=== PATIENT | female | born 1955 | race Caucasian/White ===

== ENCOUNTER → 2018-03-29 08:37 | Outpatient (CLI) | payer BC, SELFPAY ==
--- NOTE | 2018-03-29 08:43 | MM_ITS ---
MM Dig screening mamm BI w/CAD CAD Screening COMPARISON: Digital mammograms with CAD 08/08/2014 and 10/25/2015 INDICATION: There is no personal or family history of breast cancer TECHNIQUE: Standard CC and MLO images were obtained. R2 CAD reviewed. FINDINGS: There is a markedly dense and heterogenic parenchymal pattern definitely lessening the sensitivity of mammography. There is no new or suspicious lesion in either breast and there are no suspicious microcalcifications. IMPRESSION: Stable dense and heterogenic parenchymal pattern with no suspicious lesion seen BI-RADS Category: 1 Negative RECOMMENDED FOLLOW-UP: 1YR - 1 YEAR FOLLOW-UP (A letter has been sent to the patient regarding results of the study.)
== END ==
PROVIDERS: PCP Family Medicine; Visit Provider Family Medicine
DX: Z12.31 Encounter for screening mammogram for malignant neoplasm of breast (principal)
CPT/HCPCS: 77067

== ENCOUNTER → 2019-07-21 07:33 | Outpatient (CLI) | payer BC, SELFPAY ==
--- NOTE | 2019-07-21 08:00 | MM_ITS ---
PROCEDURE: MM DIG SCREENING MAMM BI W/CAD CLINICAL INDICATION: SCREENING COMPARISON: [facility] DIG MAMM-SCREEN RUSS from 08/08/2014 [facility] DIG MAMM-SCREEN [facility] from 10/25/2015 [facility] MM Dig screening mamm BI w/CAD from 03/29/2018 TECHNIQUE: Standard CC and MLO images and 3D Tomosynthesis was obtained. R2 CAD reviewed. FINDINGS: The breasts are dense. Benign appearing calcifications are seen in both breasts. Benign appearing circumscribed nodule unchanged projects over the left pectoral muscle. There is no new mass suspicious clustered microcalcification or other interval change suspicious for malignancy. IMPRESSION: BI-RAD Category: 2 benign findings FOLLOW-UP: 1 year follow-up recommended (A letter has been sent to the patient regarding results of the study.) Dictated by: Jose Antonio Theodore 07/21/2019 12:33 Electronically signed by Jose Antonio Theodore in [place] 07/21/2019 12:33
== END ==
PROVIDERS: PCP Family Medicine; Visit Provider Family Medicine
DX: Z12.31 Encounter for screening mammogram for malignant neoplasm of breast (principal)
CPT/HCPCS: 77063; 77067

== ENCOUNTER → 2021-05-24 09:22 | Outpatient (CLI) | payer BC, SELFPAY ==
[2021-05-24 10:21] LABS: Adenovirus,PCR Not Detected (NotDetected); Bordetella Pertussis Not Detected (NotDetected); Chlamydophila Pneumoniae, PCR Not Detected (NotDetected); Coronavirus 19, PCR Not Detected (NotDetected); Coronavirus 229E Not Detected (NotDetected); Coronavirus NL63 Not Detected (NotDetected); Coronavirus OC43 Not Detected (NotDetected); Coronovirus HKU1,PCR Not Detected (NotDetected); Human Metapneumovirus Not Detected (NotDetected); Influenza A, PCR Not Detected (NotDetected); Influenza AH1, 2009 Not Detected (NotDetected); Influenza AH1, PCR Not Detected (NotDetected); Influenza AH3,PCR Not Detected (NotDetected); Influenza B, PCR Not Detected (NotDetected); Mycoplasma Pneumoniae, PCR Not Detected (NotDetected); Parainfluenza 1, PCR Not Detected (NotDetected); Parainfluenza 2, PCR Not Detected (NotDetected); Parainfluenza 3, PCR Not Detected (NotDetected); Parainfluenza 4, PCR Not Detected (NotDetected); Rhinovirus/Enterovirus Not Detected (NotDetected)
[2021-05-24 10:26] LABS: Basophils # 0.1 K/mm3 (0-0.2); Basophils % 1.6 % (0.1-2.0); Eosinophils # 0.1 K/mm3 (0.0-0.4); Eosinophils % 2.4 % (0.1-12.0); Hematocrit 41.7 % (37.0-47.0); Lymphocytes # 1.5 K/mm3 (0.7-4.5); Lymphocytes % 27.2 % (10-50); Mean Corpuscular HGB Conc 31.1 g/dL (31.8-35.4); Mean Corpuscular Hemoglobin 34.4 pg (27.0-31.2); Mean Corpuscular Volume 110.8 fl (81-99); Mean Platelet Volume 9.6 fl (7.4-10.4); Monocytes # 0.4 K/mm3 (0.1-1.0); Monocytes % 6.8 % (1.7-9.3); Neutrophils # 3.4 K/mm3 (1.8-7.8); Neutrophils % 61.9 % (37.0-80.0); Platelet Count 207 K/mm3 (142-424); Red Blood Count 3.77 M/mm3 (4.20-5.40); Red Cell Distribution Width 13.3 % (11.5-17.5); White Blood Count 5.5 K/mm3 (4.8-10.8)
[2021-05-24 12:03] LABS: Respiratory Syncytial Virus Detected (NotDetected)
== END ==
PROVIDERS: PCP Family Medicine; Visit Provider Family Medicine
DX: Z20.822 Contact with and (suspected) exposure to COVID-19 (principal); B97.4 Respiratory syncytial virus as the cause of diseases classified elsewhere
CPT/HCPCS: 85025; 87581; 87632; 87798; C9803; U0003; U0005

== ENCOUNTER → 2022-03-12 08:01 | Outpatient (CLI) | payer MEDICARE, OTHER, SELFPAY ==
--- NOTE | 2022-03-12 08:05 | MM_ITS ---
PROCEDURE INFORMATION: Exam: MG Bilateral Screening 3D Mammography Exam date and time: 03/12/2022 8:15 AM Age: 66 years old Clinical indication: Screening examination. No family history of breast cancer. TECHNIQUE: Imaging protocol: Bilateral Screening tomosynthesis and 2D mammography including computer-aided detection (CAD) when performed. COMPARISON: 1. MG MM DIG SCREENING MAMM BI W/CAD 07/21/2019 8:06 AM 2. MG [facility] MM Dig screening mamm BI w/CAD 03/29/2018 8:50 AM 3. MG [facility] DIG MAMM-SCREEN RUSS 10/25/2015 9:26 AM FINDINGS: MAMMOGRAPHY: Breast composition: The breasts are heterogeneously dense, which may obscure small masses. Mass: None. Architectural distortion: None. Calcifications: No suspicious calcifications. Asymmetric density: None. Skin thickening: None. Axillary adenopathy: None. IMPRESSION: No mammographic evidence of malignancy. Annual screening is recommended unless otherwise clinically indicated. ASSESSMENT: BI-RADS Category 1: Negative
== END ==
PROVIDERS: PCP Family Medicine; Visit Provider Family Medicine
DX: Z12.31 Encounter for screening mammogram for malignant neoplasm of breast (principal)
CPT/HCPCS: 77063; 77067

== ENCOUNTER → 2022-03-13 08:37 | Outpatient (CLI) | payer MEDICARE, OTHER, SELFPAY ==
--- NOTE | 2022-03-13 08:40 | XR_ITS ---
FINAL REPORT TECHNIQUE: Bone densitometry calculations of the lumbar spine and left hip were obtained. CLINICAL HISTORY: post menopausal FINDINGS: DEXA BONE DENSITY AXIAL SKELETON Using L1-4, the bone mineral density of the spine is 1.032 g/cm2, corresponding to T-score of -0.1. Using the left hip, the bone mineral density of the femoral neck is 0.665 g/cm2, corresponding to a T-score of -1.7. NOTE: T-score: Standard deviation compared with peak bone mass of young adult mean. *Following the recommendations of the International Society of Bone densitometry, classification of hip BMD is based on the lower of two T-scores; total hip or femoral neck. IMPRESSION: Diminished bone mineral density of the lumbar spine and left hip consistent with osteopenia. FRAX 10 year fracture risk is 1.1% for a hip fracture and 8.7% for a major osteoporotic fracture. Reviewed, Interpreted and Dictated by True Marie MD Transcribed by Bhumi Lee Authenticated and [facility]
== END ==
PROVIDERS: PCP Family Medicine; Visit Provider Family Medicine
DX: Z78.0 Asymptomatic menopausal state (principal)
CPT/HCPCS: 77080

== ENCOUNTER → 2022-04-01 12:42 | Outpatient (POV) | payer MEDICARE, OTHER, SELFPAY | PROVIDERS: Visit Provider Dermatology | DX: Z00.00 Encounter for general adult medical examination without abnormal findings (principal) ==

== ENCOUNTER → 2022-05-06 09:39 | Outpatient (POV) | payer MEDICARE, OTHER, SELFPAY | PROVIDERS: Visit Provider Dermatology | DX: Z00.00 Encounter for general adult medical examination without abnormal findings (principal) ==

== ENCOUNTER 2022-07-05 15:25 | Emergency (ER) | payer MEDICARE, OTHER, SELFPAY ==
[2022-07-05 15:45] VITALS: BP 135/90; PULSE 89; RESP 18; TEMP 37.3; O2SAT 96; BMI 22.4
[2022-07-05 15:58] VITALS: BP 135/90; PULSE 89; RESP 18; TEMP 37.3; O2SAT 96
[2022-07-05 16:06] LABS: UTC Influenza A Antigen Negative (Negative); UTC Influenza B Antigen Negative (Negative)
--- NOTE | 2022-07-05 16:10 | EXP.UTC ---
Discharge Plan Disposition Patient Disposition: Home, Self-Care Condition: Good Prescriptions Prescriptions: New ondansetron 4 mg tablet,disintegrating 4 mg PO Q8H PRN (Reason: nausea and vomiting) Qty: 7 0RF Referrals Follow up/Referrals: Arpan Zhang MD [Primary Care Provider] - See instructions Activity Restrictions/Add. Instructions Additional Instructions/Restrictions: Monitor temperature. Seek treatment if fever develops. Follow-up immediately if new or worse symptoms worsen or no noticeable improvement over 48 hours. Increase fluids such as water, Gatorade, Powerade, juice or Pedialyte with limited formula/dietary in children No food is okay as long as you are drinking. Once ready to eat start bland such as bananas, rice, applesauce, toast. Contagious until no diarrhea, vomiting, fever times 48 hours without medication Avoid antidiarrheals unless told otherwise. Best to let the virus run its course. Follow-up immediately for new or worsening symptoms or no noticeable improvement over the next 48 hours. Clinical Impressions Clinical Impression: Nausea & vomiting Instructions Patient Instructions: Nausea and Vomiting-Adult Discharge ED Provider: Fritz ([facility])Latoya [facility] [place] HPI General Stated complaint: fever,vomiting Mode of Arrival: Ambulatory Source of Information: Patient Limitations: No Limitations Time Seen by Provider: 07/05/22 16:10 Description of Symptoms (Recalled from Triage Doc. by RN): PATIENT C/O FEVER AND VOMITING SINCE THIS MORNING HEENT Symptoms (Recalled from RN notes): No Resp Symptoms (Recalled from RN notes): No Skin Symptoms (Recalled from RN notes): No MS Symptoms (Recalled from RN notes): No Functional Status (Recalled from RN notes): WNL History of Present Illness Provider Complaint: 66 yr old female presents for fever and vomiting x1 this am Related Data Previous Rx's Medication Instructions Recorded ondansetron 4 mg disintegrating 4 mg PO Q8H PRN nausea and 07/05/22 tablet vomiting #7 tabs Allergies Allergy/AdvReac Type Severity Reaction Status Date / Time Penicillins [PENICILLINS] Allergy Unknown Verified 07/05/22 15:54 Worker's Comp Is this a Worker's Comp case?: No [facility] Disclaimer: The information contained in this section may have been updated after the patient was seen, as this information can be updated by other users. 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) History of appendectomy Social History , RN ONCOLOGY CLINICAL) Smoking Status: Unknown if ever smoked alcohol intake: never current occupational status: other Travel in the last 8 weeks: None ROS Obtained: Yes All systems reviewed & no additional complaints except as documented Constitutional Constitutional: Reports system reviewed and no additional complaints, except as documented, Reports as per HPI and Reports fever(s) Eyes Eyes: Reports system reviewed and no additional complaints, except as documented ENT Ears, Nose, Mouth, and Throat: Reports system reviewed and no additional complaints, except as documented Cardiovascular Cardiovascular: Reports system reviewed and no additional complaints, except as documented Respiratory Respiratory: Reports system reviewed and no additional complaints, except as documented Gastrointestinal Gastrointestingal: Reports system reviewed and no additional complaints, except as documented, as per HPI, nausea and vomiting Genitourinary Female Genitourinary: Reports system reviewed and no additional complaints, except as documented and Reports as per HPI (refuses any testing) Musculoskeletal Musculoskeletal: Reports system reviewed and no additional complaints, except as documented and Reports as per HPI Integumentary/Breasts Skin/Breast: Reports system reviewed and no additional complaints, except as documented and Reports as per HPI Neurologic Neurologic: Re
== END 2022-07-05 16:29 | disposition home or self-care (01) ==
PROVIDERS: Emergency Provider Nurse Practitioner Family; PCP Family Medicine
DX: R11.2 Nausea with vomiting, unspecified (principal); R50.9 Fever, unspecified
CPT/HCPCS: 87804; 99212; 99213; C9803; G0463; U0003; U0005

== ENCOUNTER 2022-09-01 13:44 | Emergency (ER) | payer MEDICARE, OTHER, SELFPAY ==
[2022-09-01 14:00] VITALS: BP 132/83; PULSE 106; RESP 20; TEMP 36.6; O2SAT 97; BMI 21.9
--- NOTE | 2022-09-01 14:01 | EXP.UTC ---
Discharge Plan Disposition Patient Disposition: Home, Self-Care Condition: Good Prescriptions Prescriptions: No Action meloxicam 15 mg tablet 15 mg PO DAILY allopurinol 100 mg tablet 100 mg PO DAILY omeprazole 40 mg capsule,delayed release(DR/EC) 40 mg PO DAILY Referrals Follow up/Referrals: Arpan Zhang MD [Primary Care Provider] - See instructions Activity Restrictions/Add. Instructions Additional Instructions/Restrictions: Follow-up with primary care doctor and return to the emergency department as needed. Take Tylenol or ibuprofen as needed for your pain. Your CT scan of your head was unremarkable. Clinical Impressions Clinical Impression: Minor head injury Discharge ED Provider: Clyde Arce [facility] [place] HPI General Chief complaint: Fall Stated complaint: HIT HER HEAD ON CONCRETEHAS KNOT Time Seen by Provider: 09/01/22 14:01 History of Present Illness Provider Complaint: She states that she fell and hit the back of her head on concrete. She denies loc,but she has had dizziness and nausea since this happened yesterday. She has vomited x1. Related Data Home Medications Medication Instructions Recorded Confirmed allopurinol 100 mg tablet 100 mg PO DAILY gout 09/01/22 09/01/22 meloxicam 15 mg tablet 15 mg PO DAILY Pain 09/01/22 09/01/22 omeprazole 40 mg capsule,delayed 40 mg PO DAILY , 09/01/22 09/01/22 release Allergies Allergy/AdvReac Type Severity Reaction Status Date / Time Penicillins [PENICILLINS] Allergy Unknown Verified 09/01/22 14:01 [facility] Disclaimer: The information contained in this section may have been updated after the patient was seen, as this information can be updated by other users. 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 History of appendectomy Social History Smoking Status: Never smoker alcohol intake: never current occupational status: other Travel in the last 8 weeks: None ROS Obtained: Yes All systems reviewed & no additional complaints except as documented Constitutional Constitutional: Denies chills and Denies fever(s) Eyes Eyes: Denies eye discharge ENT Ears, Nose, Mouth, and Throat: Denies dizziness, Denies otalgia, Denies neck pain and Denies sore throat Cardiovascular Cardiovascular: Denies chest pain Respiratory Respiratory: Denies shortness of breath, Denies chest congestion, Denies cough, Denies stridor and Denies wheezing Gastrointestinal Gastrointestingal: Denies nausea or vomiting Musculoskeletal Musculoskeletal: Reports as per HPI and Denies neck pain Integumentary/Breasts Skin/Breast: Denies rash Neurologic Neurologic: Denies dizziness and Denies paresthesias Allergic/Immunologic Allergic/Immunologic: Denies wheezing Physical Exam General General appearance: alert and in no apparent distress Head Head exam: normocephalic, normal inspection and other (there is swelling of the back of her head, no open wound, no depressions. ) Eye Eye exam: Present normal appearance, PERRL and EOMI ENT ENT exam: Present normal exam, normal oropharynx, mucous membranes moist, TM's normal bilaterally and normal external ear exam Neck Neck exam: Present normal inspection, full ROM and trachea midline; Absent tenderness, meningismus or lymphadenopathy Chest Chest inspection: Present normal inspection and symmetric chest wall rise; Absent tenderness Respiratory Respiratory exam: Present normal lung sounds bilaterally; Absent respiratory distress Cardiovascular Cardiovascular exam: Present regular rate and normal rhythm; Absent JVD Abdominal Exam Abdominal exam: Present soft and normal bowel sounds; Absent distention, tenderness or guarding Extremities Exam Extremities exam: Present normal inspection, full ROM and normal capillary refill; Absent calf tenderness Back Exam Back exam: Present normal inspection; Absent tenderness Neurological Exam Yasmeen
[2022-09-01 14:26] VITALS: BP 158/98; PULSE 101; RESP 18; TEMP 36.6; O2SAT 99; BMI 21.6
[2022-09-01 14:30] VITALS: BP 171/91; PULSE 96; RESP 18; O2SAT 98
--- NOTE | 2022-09-01 14:30 | CT_ITS ---
FINAL REPORT TECHNIQUE: Axial CT images were performed through the head. Coronal reformatted images were submitted. This study was performed with techniques to keep radiation doses as low as reasonably achievable (ALARA). Individualized dose reduction techniques using automated exposure control or adjustment of mA and/or kV according to the patient's size were employed. CLINICAL HISTORY: fall head injury FINDINGS: There is moderate cerebral atrophy. The ventricles are normal in size. There is no evidence of hemorrhage. There is no mass or edema identified. There is no abnormal extra-axial fluid seen. There is mild mucoperiosteal thickening in the left maxillary sinus. IMPRESSION: No acute intracranial process. Reviewed, Interpreted and Dictated by True Marie MD Transcribed by Sadie Willard Authenticated and [facility]
--- NOTE | 2022-09-01 14:31 | HMH.EDGENADL ---
Discharge Plan Disposition Patient Disposition: Home, Self-Care Prescriptions Prescriptions: No Action meloxicam 15 mg tablet 15 mg PO DAILY allopurinol 100 mg tablet 100 mg PO DAILY omeprazole 40 mg capsule,delayed release(DR/EC) 40 mg PO DAILY Referrals Follow up/Referrals: Arpan Zhang MD [Primary Care Provider] - See instructions Activity Restrictions/Add. Instructions Additional Instructions/Restrictions: Follow-up with primary care doctor and return to the emergency department as needed. Take Tylenol or ibuprofen as needed for your pain. Your CT scan of your head was unremarkable. Clinical Impressions Clinical Impression: Minor head injury Discharge ED Provider: Clyde Arce General Adult HPI General Chief complaint: Fall Stated complaint: HIT HER HEAD ON CONCRETEHAS KNOT Time Seen by Provider: 09/01/22 14:01 Mode of Arrival: Ambulatory Source of Information: Patient and Medical Record Limitations: No Limitations Description of Symptoms (Recalled from ER Triage Doc. by RN): c/o knot on the back of her head and nausea after a fall yesterday around 9-10am. Pt states that she has felt nausea since the fall and she had water earlier today and was unable to keep it down. Pt slipped on some oil in her garage and fell straight back and hit the concrete. Denies any LOC or other injuries related to fall. Pt was out at [facility] and her friend told her she could and needed to get checked out. Pt is very anxious about this information. History of Present Illness HPI narrative: 66-year-old female presenting from the urgent treatment clinic. She states that yesterday she was walking in her garage and slipped on oil legs going out from under her falling directly on to the posterior aspect of her occiput and has had a headache since that time. She has been nauseated but has not had any vomiting. She did not have a loss of consciousness has not had any other neurologic symptoms. She does not have any cervical spine pain no upper extremity weakness or paresthesias. She has posterior occipital hematoma she states. Related Data Home Medications Medication Instructions Recorded Confirmed allopurinol 100 mg tablet 100 mg PO DAILY gout 09/01/22 09/01/22 meloxicam 15 mg tablet 15 mg PO DAILY Pain 09/01/22 09/01/22 omeprazole 40 mg capsule,delayed 40 mg PO DAILY , 09/01/22 09/01/22 release Allergies Allergy/AdvReac Type Severity Reaction Status Date / Time Penicillins [PENICILLINS] Allergy Unknown Verified 09/01/22 14:01 [facility] Disclaimer: The information contained in this section may have been updated after the patient was seen, as this information can be updated by other users. 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 Social History Smoking Status: Never smoker alcohol intake: never current occupational status: other Travel in the last 8 weeks: None ROS Obtained: Yes All systems reviewed & no additional complaints except as documented Physical Exam General General appearance: alert and other (Very nervous) Head Head exam: atraumatic (Posterior occipital hematoma no depressed skull fracture no burt sign or raccoon eyes) Neck Neck exam: Present normal inspection and full ROM; Absent trachea midline or tenderness (No midline cervical spine tenderness) Respiratory Respiratory exam: Present normal lung sounds bilaterally; Absent respiratory distress Cardiovascular Cardiovascular exam: Present regular rate Neurological Exam Neurological exam: Present alert and oriented X3 Medical Decision Making Willian Inquiry Pt receiving controlled substance: No Vital Signs: 09/01/22 14:00 09/01/22 14:26 09/01/22 14:30 Temperature 97.8 F 98 F Temperature Source Oral Oral Pulse Rate 96 H Pulse Rate [Right Radial] 106 H 101 H Respiratory Rate 20 18
--- NOTE | 2022-09-01 14:37 | PC.NURSE ---
aware that pt can only take one tylenol.
--- NOTE | 2022-09-01 14:44 | PC.NURSE ---
pt to radiology
[2022-09-01 16:39] VITALS: BP 165/83; PULSE 95; RESP 18; TEMP 36.6
== END 2022-09-01 16:41 | disposition home or self-care (01) ==
LOC: UTC 13:49 → ER 14:20
PROVIDERS: Emergency Provider Student in an Organized Health Care Education/Training Program; PCP Family Medicine
DX: S09.8XXA Other specified injuries of head, initial encounter (principal); R11.0 Nausea; W01.0XXA Fall on same level from slipping, tripping and stumbling without subsequent striking against object, initial encounter
CPT/HCPCS: 70450; 99284

== ENCOUNTER → 2023-03-20 07:35 | Outpatient (CLI) | payer MEDICARE, OTHER, SELFPAY ==
--- NOTE | 2023-03-20 07:39 | MM_ITS ---
PROCEDURE INFORMATION: Exam: MG Bilateral Screening 3D Mammography Exam date and time: 03/20/2023 7:49 AM Age: 67 years old Clinical indication: Screening mammogram TECHNIQUE: Imaging protocol: Bilateral Screening tomosynthesis and 2D mammography including computer-aided detection (CAD) when performed. COMPARISON: 1. MG MM DIG SCREENING MAMM BI W/CAD 03/12/2022 8:15 AM 2. MG MM DIG SCREENING MAMM BI W/CAD 07/21/2019 8:06 AM 3. MG [facility] MM Dig screening mamm BI w/CAD 03/29/2018 8:50 AM FINDINGS: MAMMOGRAPHY: Breast composition: The breast is heterogeneously dense, which may obscure small masses. Mass: None. Architectural distortion: No new or suspicious architectural distortion. Calcifications: No new or suspicious calcifications are present Asymmetric density: No new or suspicious asymmetric density is present Skin thickening: None. Axillary adenopathy: None. IMPRESSION: No mammographic evidence of malignancy. Recommend annual screening mammography unless otherwise clinically indicated. ASSESSMENT: BI-RADS category 1: Negative
== END ==
PROVIDERS: PCP Family Medicine; Visit Provider Family Medicine
DX: Z12.31 Encounter for screening mammogram for malignant neoplasm of breast (principal)
CPT/HCPCS: 77063; 77067

== ENCOUNTER 2023-06-03 12:10 | Observation (INO) | payer MEDICARE, OTHER, SELFPAY ==
[2023-06-03] VITALS (9 sets, daily range): BP systolic 130–189; BP diastolic 67–104; PULSE 88–111; RESP 18–20; TEMP 36.7–36.9; O2SAT 95–100; BMI 21.6; BMI 21.2
--- NOTE | 2023-06-03 12:26 | XR_ITS ---
FINAL REPORT TECHNIQUE: 4 views right ribs CLINICAL HISTORY: fall, right sided rib pain COMPARISON: None FINDINGS: RIGHT RIBS: Multiple views of the right ribs reveal lateral rib fractures, nondisplaced, of the eighth, ninth, and 10th ribs. There is a small right pneumothorax which has 13 mm of pleural separation. These results were called to the [facility] unit at [facility], 06/03/2023, at 1:35 PM. The report was given to Latoya Hu. IMPRESSION: Nondisplaced rib fractures of the eighth, ninth and 10th ribs on the right side with a right-sided pneumothorax as described. Would recommend follow-up films to assure resolution of the pneumothorax. Reviewed, Interpreted and Dictated by Mata Laughlin III, MD Transcribed by Veena Urban Authenticated and . [facility]
--- NOTE | 2023-06-03 13:42 | PC.NURSE ---
Latoya Hu spoke with Radiologist about xray.
--- NOTE | 2023-06-03 13:54 | ED_ITS ---
Discharge Plan Disposition Patient Disposition: Still a Patient Referrals Follow up/Referrals: Bri Trent MD [Primary Care Provider] - See instructions Clinical Impressions Clinical Impression: Closed rib fracture Qualifiers: Encounter type: initial encounter Rib fracture type: multiple ribs Laterality: right Qualified Code(s): S22.41XA - Multiple fractures of ribs, right side, initial encounter for closed fracture [facility] [facility] [place] General Stated complaint: ao 1/3 right side and head pain Mode of Arrival: Ambulatory Source of Information: Patient Limitations: No Limitations Time Seen by Provider: 06/03/23 13:54 Description of Symptoms (Recalled from Triage Doc. by RN): Fell in garage at 0815 today. She hit the back of her head and her right side. She denies losing consciousness. She has pain in head, and right ribs. HEENT Symptoms (Recalled from RN notes): Yes Resp Symptoms (Recalled from RN notes): No Skin Symptoms (Recalled from RN notes): No MS Symptoms (Recalled from RN notes): No Functional Status (Recalled from RN notes): n/a History of Present Illness Provider Complaint: 67 yr old female presents for rt rib pain and lac to head. Pt states she fell in garage at 0730 today. She hit the back of her head on concrete and her right side on a storage bin. She denies losing consciousness. Related Data Allergies Allergy/AdvReac Type Severity Reaction Status Date / Time Penicillins [PENICILLINS] Allergy Unknown Verified 06/03/23 13:10 Worker's Comp Is this a Worker's Comp case?: No [facility] Disclaimer: The information contained in this section may have been updated after the patient was seen, as this information can be updated by other users. 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) Smoking Status: Never smoker alcohol intake: never current occupational status: other Travel in the last 8 weeks: None ROS Obtained: Yes All systems reviewed & no additional complaints except as documented Constitutional Constitutional: Reports system reviewed and no additional complaints, except as documented, Reports as per HPI and Reports other Eyes Eyes: Reports system reviewed and no additional complaints, except as documented ENT Ears, Nose, Mouth, and Throat: Reports system reviewed and no additional complaints, except as documented Cardiovascular Cardiovascular: Reports system reviewed and no additional complaints, except as documented Respiratory Respiratory: Reports system reviewed and no additional complaints, except as documented, Reports as per HPI, Reports pain on inspiration, Reports pain with cough, Reports pain with breathing and Reports other Gastrointestinal Gastrointestingal: Reports system reviewed and no additional complaints, except as documented Integumentary/Breasts Skin/Breast: Reports system reviewed and no additional complaints, except as documented, Reports as per HPI and Reports other (lac to back of head) Neurologic Neurologic: Reports system reviewed and no additional complaints, except as documented and Reports as per HPI Endocrine Endocrine: Reports system reviewed and no additional complaints, except as documented Hematologic/Lymphatic Henatologic/Lymphatic: Reports system reviewed and no additional complaints, except as documented Allergic/Immunologic Allergic/Immunologic: Reports system reviewed and no additional complaints, except as documented Physical Exam General General appearance: alert Head Head exam: atraumatic Eye Eye exam: Present normal appearance and PERRL ENT ENT exam: Present normal exam, mucous membranes moist and TM's normal bilaterally Respiratory Respiratory exam: Present other Expanded Respiratory Exam Location: Right: decreased breath sounds and Lower: decreased breath sounds Cardiovascular Cardiovascular exam: Present regular rate and normal rhythm Neurological Exam Neurological exam: Present alert and oriented X3 Skin Skin exam: Present warm Medical Decision Making Medical Records Medical records reviewed: Yes I reviewed the patient's medical records. Willian Inquiry Pt receiving controlled substance: No Willian was queried for this patient: No Comment: sent to ed for eval report to dr aguilar Vital Signs: 06/03/23 12:50 Temperature 98.2 F Temperature Source Oral Pulse Rate [Right Radial] 109 H Respiratory Rate 18 Blood Pressure [Right Arm] 159/88 H Blood Pressure Mean [Right Arm] 111 Blood Pressure Source [Right Arm] Automatic Cuff Blood Pressure Position [Right Arm] Sitting 02 Sat by Pulse Oximetry 95 Oxygen Delivery Method Room Air Lab Data Lab results reviewed: Yes I reviewed the patient's lab results. Orders (Tests/Meds): ORDERS Category Date Time Status XR ribs RT min 3V w CXR1V Stat Exams 06/03/23 12:26 Taken
--- NOTE | 2023-06-03 14:03 | PC.NURSE ---
Pt arrived to ED room 2 from [facility]
--- NOTE | 2023-06-03 14:22 | CT_ITS ---
FINAL REPORT CLINICAL HISTORY: fall, head trauma COMPARISON: 09/01/2022 FINDINGS: Axial images of the head were obtained without contrast. Coronal reformatted images were also obtained. This study was performed with techniques to keep radiation doses as low as reasonably achievable (ALARA). Individualized dose reduction techniques using automated exposure control or adjustment of mA and/or kV according to the patient''s size were employed. There is generalized age appropriate atrophy. There is no evidence of intracranial hemorrhage or mass. The ventricular size is within normal limits. There is no evidence of shift of the midline structures. No skull abnormality is seen on the bone window images. There is mild mucosal thickening of the left maxillary sinus. IMPRESSION: No acute intracranial abnormality. Reviewed, Interpreted and Dictated by Mata Laughlin III, MD Transcribed by Shobha Zuleta Authenticated and . [facility]
--- NOTE | 2023-06-03 14:22 | CT_ITS ---
FINAL REPORT TECHNIQUE: Axial images were obtained from the lung apex to the mid abdomen by computed tomography. 3D reformatted images were obtained and reviewed. Coronal reformatted images were obtained. This study was performed with techniques to keep radiation doses as low as reasonably achievable, (ALARA). Individualized dose reduction techniques using automated exposure control or adjustment of mA and/or kV according to the patient''s size were employed. CLINICAL HISTORY: fall, ribs and pneumo COMPARISON: None FINDINGS: There is no axillary adenopathy. There is no hilar or mediastinal adenopathy. Heart size is normal. There is no pericardial effusion. There is a small right pneumothorax. There is mild bibasilar atelectasis. A small right effusion versus hemothorax is noted. There are fractures of the right 8th, 9th, 10th, 11th, and 12th ribs. There are multiple chronic left posterior rib fractures. IMPRESSION: Right 8th through 12th rib fractures with small right pneumothorax. Right effusion versus hemothorax. Reviewed, Interpreted and Dictated by Mata Laughlin III, MD Transcribed by Lauren Estrella Authenticated and [facility]
--- NOTE | 2023-06-03 14:22 | CT_ITS ---
FINAL REPORT CLINICAL HISTORY: fall, hit head COMPARISON: 02/09/2017 FINDINGS: Axial CT images of the cervical spine were obtained without contrast. Sagittal and coronal reformatted images were also obtained. This study was performed with techniques to keep radiation doses as low as reasonably achievable (ALARA). Individualized dose reduction techniques using automated exposure control or adjustment of mA and/or kV according to the patient's size were employed. There is no evidence of fracture or dislocation. There is mild anterolisthesis of C3 on C4. There is mild and moderate degenerative change. Multilevel neuroforaminal narrowing is noted. There is no evidence of canal stenosis. No paraspinous soft tissue abnormality is seen. Limited images of the upper thorax are unremarkable. IMPRESSION: No fracture or acute bony abnormality identified. Reviewed, Interpreted and Dictated by Mata Laughlin III, MD Transcribed by Lauren Estrella Authenticated and [facility]
[2023-06-03] MEDS: KETOROLAC 30MG/ML VIAL 15 MG IV ×3 (14:30→23:46)
[2023-06-03] MEDS: ACETAMINOPHEN 1,000MG/100ML VIAL 1000 MG IV (14:31)
[2023-06-03] MEDS: MORPHINE 4MG/ML SYRINGE 4 MG IV (14:31)
[2023-06-03 14:33] LABS: Basophils # 0.1 K/mm3 (0-0.2); Basophils % 0.5 % (0.1-2.0); Eosinophils % 0.3 % (0.1-12.0); Hematocrit 44.5 % (37.0-47.0); Hemoglobin 14.7 g/dL (12.2-16.2); Mean Corpuscular Volume 106.1 fl (81-99); Monocytes # 0.6 K/mm3 (0.1-1.0); Monocytes % 4.8 % (1.7-9.3); Neutrophils % 78.4 % (37.0-80.0); Platelet Count 253 K/mm3 (142-424); Red Cell Distribution Width 12.9 % (11.5-17.5); White Blood Count 12.8 K/mm3 (4.8-10.8)
--- NOTE | 2023-06-03 14:34 | PC.NURSE ---
Dr. Humphrey at BS for pt eval
[2023-06-03 14:38] LABS: Alanine Aminotransferase 59 U/L (12-78); Albumin Level 5.1 g/dl (3.5-5.0); Albumin/Globulin Ratio 1.5 (1.1-1.8); Alkaline Phosphatase 61 U/L (38-126); Anion Gap 20.8 mEq/L (5-15); Aspartate Amino Transferase 78 U/L (14-36); Blood Urea Nitrogen 26 mg/dl (7-17); Calcium 8.9 mg/dl (8.4-10.2); Carbon Dioxide 21 mmol/L (22.0-30.0); Chloride 95 mmol/L (98-107); Creatinine Clearance Estimated 52 mL/min (50-200); Estimated Glomerular Filt Rate 55 ml/min (>60); GFR (African American) 67 ML/MIN (>60); Globulin 3.4 g/dL (1.3-3.2); Glucose 91 mg/dl (74-100); Potassium 4.8 mmoL/L (3.5-5.1); Sodium 132 mmol/L (136-145); Total Protein,Serum 8.5 g/dl (6.3-8.2)
[2023-06-03 14:39] LABS: Activated Partial Thrombo Time 28.3 seconds (22.8-30.6); INR 0.94 (0.9-1.1); Prothrombin Time 10.2 seconds (10.1-12.5)
--- NOTE | 2023-06-03 14:51 | ED_ITS ---
Discharge Plan Disposition Patient Disposition: Admitted Clinical Impressions Clinical Impression: Fracture of multiple ribs of right side, Closed traumatic fracture of ribs of right side with pneumothorax, Laceration of scalp Closed rib fracture Qualifiers: Encounter type: initial encounter Rib fracture type: multiple ribs Laterality: right Qualified Code(s): S22.41XA - Multiple fractures of ribs, right side, initial encounter for closed fracture Discharge ED Provider: Ty Humphrey General Adult HPI General Chief complaint: PAIN Stated complaint: ao 1/3 right side and head pain Time Seen by Provider: 06/03/23 13:54 Mode of Arrival: Wheelchair Source of Information: Patient and Relative Limitations: No Limitations Description of Symptoms (Recalled from ER Triage Doc. by RN): pt presents to ED as transfer from [facility]. pt reports a fall this am. pt was walking into her garage, tripped over something on the floor and fell into a storage unit with her ride side of body. pt reports pain in right rib area. pt does have small laceration to back of head. - LOC, no blood thinners. History of Present Illness HPI narrative: C7-year-[age] female no medical history presenting with fall. Patient fell 7 AM today tripping over a box. Hit the back of her head, did not lose consciousness. Had right-sided rib pain and headache. Went to the urgent care and was found to have rib fractures, pneumothorax, laceration on her head. Sent over to the ER for further evaluation. Pain is significant, does not radiate, not associated with shortness of breath. Patient has worsening pain with deep inspiration. No headache, vision changes, or any other concerns. Related Data Allergies Allergy/AdvReac Type Severity Reaction Status Date / Time Penicillins [PENICILLINS] Allergy Unknown Verified 06/03/23 13:10 [facility] Disclaimer: The information contained in this section may have been updated after the patient was seen, as this information can be updated by other users. 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 Hemostatic. No signs of basilar skull fracture) Eye Eye exam: Present normal appearance, PERRL and EOMI ENT ENT exam: Present mucous membranes moist Neck Neck exam: Present normal inspection, full ROM and trachea midline Chest Chest inspection: Present tenderness Respiratory Respiratory exam: Present other (Chest wall tender is on the right. Decreased breath sounds associated); Absent respiratory distress, wheezes, stridor, accessory muscle use or prolonged expiratory phase Cardiovascular Cardiovascular exam: Present normal rhythm Abdominal Exam Abdominal exam: Present soft; Absent distention, tenderness, guarding, rebound or rigidity Extremities Exam Extremities exam: Absent edema Neurological Exam Neurological exam: Present alert, oriented X3, CN II-XII intact and normal gait; Absent motor sensory deficit Skin Skin exam: Present warm and dry; Absent diaphoresis or erythema Medical Decision Making Medical Records Medical records reviewed: Yes I reviewed the patient's medical records. Willian Inquiry Pt receiving controlled substance: No Willian was queried for this patient: No Vital Signs: 06/03/23 12:50 06/03/23 14:15 06/03/23 14:31 Temperature 98.2 F 98.5 F Temperature Source Oral Oral Pulse Rate 108 H Pulse Rate [Right Radial] 109 H 111 H Respiratory Rate 18 20 Blood Pressure 168/90 H Blood Pressure [Right Arm] 159/88 H 189/97 H Blood Pressure Mean Blood Pressure Mean [Right Arm] 111 127 Blood Pressure Source [Right Arm] Automatic Cuff Blood Pressure Position [Right Arm] Sitting 02 Sat by Pulse Oximetry 95 97 100 Oxygen Delivery Method Room Air Room Air 06/03/23 15:00 Temperature Temperature Source Pulse Rate 110 H Pulse Rate [Right Radial] Respiratory Rate Blood Pressure 171/104 H Blood Pressure [Right Arm] Blood Pressure Mean 116 Blood Pressure Mean [Right Arm] Blood Pressure Source [Right Arm] Blood Pressure Position [Right Arm] 02 Sat by Pulse Oximetry 100 Oxygen Delivery Method Lab Data Lab Results 06/03/23 14:17: WBC 12.8 H, RBC 4.20, Hgb 14.7, Hct 44.5, MCV 106.1 H, MCH 35.0 H, MCHC 33.0, RDW 12.9, Plt Count 253, MPV 9.0, Neut % (Auto) 78.4, Lymph % (Auto) 16.0, [place] % (Auto) 4.8, Eos % (Auto) 0.3, Baso % (Auto) 0.5, Neut # (Auto) 10.0 H, Lymph # (Auto) 2.0, [place] # (Auto) 0.6, Eos # (Auto) 0.0, Baso # (Auto) 0.1, PT 10.2, INR 0.94, APTT 28.3, Sodium 132 L, Potassium 4.8, Chloride 95 L, Carbon Dioxide 21 L, Anion Gap 20.8 H, BUN 26 H, Creatinine 1.00, Estimated Creat Clear 52, Estimated GFR 55 L, Est GFR ( Amer) 67, Glucose 91, Calcium 8.9, Total Bilirubin 2.0 H, AST 78 H, ALT 59, Alkaline Phosphatase 61, Total Protein 8.5 H, Albumin 5.1 H, Globulin 3.4 H, Albumin/Globulin Ratio 1.5 06/03/23 14:17 06/03/23 14:17 Orders (Tests/Meds): ED MEDICATIONS Generic Name Dose Route Start Last Admin Trade Name Freq PRN Reason Stop Dose Admin Sodium Chloride 10 ml 06/03/23 14:19 Sodium Chloride 0.9% 10ml Flush Syringe IV 07/03/23 14:18 NEEDED PRN Maintain IV Site Discontinued Medications Generic Name Dose Route Start Last Admin Trade Name Freq PRN Reason Stop Dose Admin Acetaminophen 1,000 mg 06/03/23 14:24 06/03/23 14:31 Acetaminophen 1,000mg/100ml Vial IV 06/03/23 14:25 1,000 mg ONCE ONE Administration Ketorolac Tromethamine 15 mg 06/03/23 14:24 06/03/23 14:30 Ketorolac 30mg/Ml Vial IV 06/03/23 14:25 15 mg ONCE ONE Administration Morphine Sulfate 4 mg 06/03/23 14:24 06/03/23 14:31 Morphine 4mg/Ml Syringe IV 06/03/23 14:25 4 mg ONCE ONE Administration ORDERS Category Date Time Status CT cervical spine wo con Stat Cat Scan 06/03/23 14:[address] chest wo con Stat Cat Scan 06/03/23 14:[address] head/brain wo con Stat Cat Scan 06/03/23 14:22 Taken XR ribs RT min 3V w CXR1V Stat Exams 06/03/23 12:26 Completed CBC w/Auto Diff [Complete Blood Count Auto Diff] Stat Lab 06/03/23 14:17 Completed CMP [Comprehensive Metabolic Panel] Stat Lab 06/03/23 14:17 Completed PT INR [Prothrombin Time INR] Stat Lab 06/03/23 14:17 Completed PTT [Activated Partial Thrombo Time] Stat Lab 06/03/23 14:17 Completed Medical Decision Narrative: C7-year-old female no medical history presenting with fall. Patient fell 7 AM today tripping over a box. Hit the back of her head, did not lose consciousness. Had right-sided rib pain and headache. Went to the urgent care and was found to have rib fractures, pneumothorax, laceration on her head. Sent over to the ER for further evaluation. Pain is significant, does not radiate, not associated with shortness of breath. Patient has worsening pain with deep inspiration. No headache, vision changes, or any other concerns. History was obtained via conversation with patient. On arrival, patient hemodynamically stable, alert, oriented x4, appropriate, GCS 15, moving all extremities spontaneously, pupils equal and reactive to light. Full physical exam performed and significant for sick centimeter laceration occiput. No cervical spine or back pain. Patient does have decreased breath sounds on the right side as well as chest wall tenderness on the posterior lateral aspect.. Differential includes hemothorax, pneumothorax, rib fractures, pulmonary contusion, intracranial bleed, cervical spine injury, among others. Patient was given morphine, Toradol, [place] of for symptomatic management and correction of underlying abnormalities. Workup independently interpreted and significant for nonactionable CBC or chemistry. Coags negative. Patient does have multiple posterior lateral ribs fractured on the right side with associated small pneumothorax. No intracranial hemorrhage or cervical spine injury. See radiology read for full review of final results. On reevaluation, patient resting comfortably bed. Primary care physician lesley ontacted and case was discussed at length, recommended admission for serial chest x-rays. Given patient presentation, workup, history, this most likely represents traumatic pneumothorax with multiple rib fracture of the right side as well as scalp laceration after fall. Because patient high risk for clinical decompensation, deemed appropriate for inpatient admission. Results were relayed to patient who voiced understanding and patient was agreeable to inpatient admission and management. Patient was admitted to the hospital for further definitive management. Procedures Laceration Laceration 1: Site: scalp Size (cm): 6 Description: linear Local Anesthetic: lidocaine 1% Amount of anesthesia used (mL): 8 Pre-repair: wound explored and deep structures intact Skin layer closed with: other (tera) Number of sutures: 8 Critical Care Critical Care Time Critical Care Time: No
--- NOTE | 2023-06-03 15:16 | PC.NURSE ---
Dr. Twan cazares
--- NOTE | 2023-06-03 15:30 | PC.NURSE ---
call made to care management for bed placement
--- NOTE | 2023-06-03 15:50 | PC.NURSE ---
report called to yazan on second floor
--- NOTE | 2023-06-03 16:05 | PC.NURSE ---
arrived by w/c from ED
--- NOTE | 2023-06-03 16:52 | EXP.HP ---
History of Present Illness *Admission Date: 06/03/23 *Reason for visit:: fall with scalp laceration and rib pain *History of present illness: Ms. Amato is a 67-year-old female who tripped over a storage box at home and hit the back of her head. She did not lose consciousness but did have right-sided pain and a headache after the fall. She went to urgent care and was found to have multiple rib fractures on the right side along with a pneumothorax and a laceration to her head. She was sent to the emergency room for further evaluation. She was given some morphine for pain. There were multiple posterior lateral rib fractures with an associated small pneumothorax. There was no intracranial hemorrhage or cervical spine injury. She was admitted for serial chest x-rays. At this time she denies headache but does complain of right-sided pain [facility] Disclaimer: The information contained in this section may have been updated after the patient was seen, as this information can be updated by other users. Medical History (Updated 06/03/23 @ 17:43 by Joshua Thomas MD) Alcohol use Anxiety GERD (gastroesophageal reflux disease) Osteoarthritis 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 History of appendectomy Family History (Updated 06/03/23 @ 17:01 by DEIRDRE Catherine) Family history of stroke Mother Heart attack Family history of COPD (chronic obstructive pulmonary disease) Father Cancer Social History (Updated 06/03/23 @ 16:28 by Clau Rodriguez RN) Smoking Status: Never smoker alcohol intake: current current occupational status: other Travel in the last 8 weeks: None Review of Systems Constitutional Constitutional: Denies body ache(s), Denies chills, Denies fever(s), Reports headache(s) and Denies weakness Eyes Eyes: Denies blurry vision, Denies diplopia and Denies loss of vision ENT Ears, Nose, Mouth, and Throat: Reports headache(s), Denies nasal congestion, Denies sore throat and Denies vertigo *Cardiovascular Cardiovascular: Reports chest pain (right sided) and Denies dyspnea *Respiratory Respiratory: Denies dyspnea and Reports pain on inspiration *Gastrointestinal Gastrointestinal: Denies abdominal pain, Denies loose stools, Denies nausea and Denies vomiting *Genitourinary Genitourinary: Denies difficulty voiding and Denies dysuria *Musculoskeletal Musculoskeletal: Reports back pain (right side) *Neurologic Neurologic: Reports headache(s), Denies loss of vision, Denies seizure-like activity, Denies vertigo and Denies weakness Meds Home Medications and Allergies New Prescriptions to Start Prescriptions: Allergies Allergy/AdvReac Type Severity Reaction Status Date / Time Penicillins [PENICILLINS] Allergy Unknown Verified 06/03/23 13:10 Exam Data for Last 24 hours Vital signs and Labs for Last 24 Hours: Temp Pulse Resp BP Pulse Ox O2 Del Method 98.5 F 101 H 18 160/83 H 99 Non-Rebreather 06/03/23 16:11 06/03/23 16:11 06/03/23 16:11 06/03/23 16:11 06/03/23 16:11 06/03/23 16:11 Laboratory Results - last 24 hr 06/03/23 14:17: WBC 12.8 H, RBC 4.20, Hgb 14.7, Hct 44.5, MCV 106.1 H, MCH 35.0 H, MCHC 33.0, RDW 12.9, Plt Count 253, MPV 9.0, Neut % (Auto) 78.4, Lymph % (Auto) 16.0, [place] % (Auto) 4.8, Eos % (Auto) 0.3, Baso % (Auto) 0.5, Neut # (Auto) 10.0 H, Lymph # (Auto) 2.0, [place] # (Auto) 0.6, Eos # (Auto) 0.0, Baso # (Auto) 0.1, PT 10.2, INR 0.94, APTT 28.3, Sodium 132 L, Potassium 4.8, Chloride 95 L, Carbon Dioxide 21 L, Anion Gap 20.8 H, BUN 26 H, Creatinine 1.00, Estimated Creat Clear 52, Estimated GFR 55 L, Est GFR ( Amer) 67, Glucose 91, Calcium 8.9, Total Bilirubin 2.0 H, AST 78 H, ALT 59, Alkaline Phosphatase 61, Total Protein 8.5 H, Albumin 5.1 H, Globulin 3.4 H, Albumin/Globulin Ratio 1.5 I & O for Last 24 hours: Intake & Output 06/01/23 06/02/23 06/03/23 06/04/23 11:59 11:59 11:59 11:59 Weight 127 lb 8 oz Constitutional Constitutional: no acute distress *Routine HEENT Exam Head: Present normocephalic and atraumatic Eye: Present EOMI and PERRL ENT: Present mucous membranes moist *Routine Neck Exam Neck: Present supple and full ROM Routine Chest/Breast/Axilla Exam Chest wall: Present tenderness (along right side of chest wall) *Routine Respiratory Exam Respiratory: Present decreased breath sounds (on right) and CTA bilaterally *Routine Cardiovascular Exam Cardiovascular: Present RRR *Routine Abdominal Exam Abdominal: Present soft and normoactive bowel sounds; Absent tenderness *Routine Rectal Exam Rectal:: deferred *Routine Genitalia Exam Genitalia:: deferred *Routine Extremities Exam Extremities: Absent cyanosis, clubbing or edema *Routine Skin Exam Skin: Present intact; Absent erythema Comments: scalp laceration has been closed with tera *Routine Neurological Exam Neurological: Present alert and oriented X3 H&P: Result Impressions Rib x-ray - Nondisplaced rib fractures of the eighth, ninth and 10th ribs on the right side with a right-sided pneumothorax as described. Would recommend follow-up films to assure resolution of the pneumothorax. Cervical spine CT - no fracture Chest CT - Right 8th through 12th rib fractures with small right pneumothorax. Right effusion versus hemothorax. Head CT - nothing acute Assessment and Plan *Assessment and plan (1) Closed traumatic fracture of ribs of right side with pneumothorax: Status: Acute Category: Medical Code(s): S22.41XA - Multiple fractures of ribs, right side, initial encounter for closed fracture; S27.0XXA - Traumatic pneumothorax, initial encounter (2) Laceration of scalp: Status: Acute Category: Medical Code(s): S01.01XA - Laceration without foreign body of scalp, initial encounter (3) Fracture of multiple ribs of right side: Status: Acute Category: Medical Code(s): S22.41XA - Multiple fractures of ribs, right side, initial encounter for closed fracture (4) GERD (gastroesophageal reflux disease): Status: Chronic Category: Medical Code(s): K21.9 - Gastro-esophageal reflux disease without esophagitis (5) Osteoarthritis: Status: Chronic Category: Medical Code(s): M19.90 - Unspecified osteoarthritis, unspecified site (6) Anxiety: Status: Chronic Category: Medical Code(s): F41.9 - Anxiety disorder, unspecified (7) Elevated LFTs: Status: Acute Category: Medical Code(s): R79.89 - Other specified abnormal findings of blood chemistry (8) URI (upper respiratory infection): Status: Acute Category: Medical Code(s): J06.9 - Acute upper respiratory infection, unspecified Plan Patient with nonrebreather in place. Will be admitted for check serial chest x-rays due to traumatic pneumothorax. Will discuss further care with Dr. Thomas. Dr. Thomas entry - Saw patient, agree with above note. Add Zithromax for URI.
[2023-06-03] MEDS: AZITHROMYCIN 250MG TABLET 500 MG PO (18:20)
[2023-06-03] MEDS: MORPHINE 2MG/ML SYRINGE 2 MG IV (20:16)
[2023-06-03] MEDS: FAMOTIDINE 20MG TABLET 40 MG PO (21:08)
[2023-06-04 04:00] VITALS: BP 125/73; PULSE 77; RESP 18; TEMP 36.6; O2SAT 100; BMI 22.0
[2023-06-04] MEDS: KETOROLAC 30MG/ML VIAL 15 MG IV ×2 (04:52→10:55)
--- NOTE | 2023-06-04 06:00 | XR_ITS ---
PROCEDURE INFORMATION: Exam: XR Chest Exam date and time: 06/04/2023 6:16 AM Age: 67 years old Clinical indication: Chest wall pain; Additional info: Upright pneumo eval TECHNIQUE: Imaging protocol: Radiologic exam of the chest. Views: 1 view. COMPARISON: CT CHEST WO CON 06/03/2023 2:50 PM FINDINGS: Lungs: Mild platelike atelectasis and/or scarring left retrocardiac region. Lungs are otherwise well aerated. Pleural spaces: Small residual apical pneumothorax on the right. Heart/Mediastinum: Unremarkable. No cardiomegaly. Bones/joints: Unremarkable. IMPRESSION: 1. Mild platelike atelectasis and/or scarring left retrocardiac region. Lungs are otherwise well aerated. 2. Small residual apical pneumothorax on the right. Follow-up recommended.
[2023-06-04 06:42] LABS: Basophils % 0.5 % (0.1-2.0); Monocytes # 0.3 K/mm3 (0.1-1.0)
[2023-06-04 06:50] LABS: Alanine Aminotransferase 35 U/L (12-78); Albumin/Globulin Ratio 1.5 (1.1-1.8); Alkaline Phosphatase 42 U/L (38-126); Anion Gap 11.2 mEq/L (5-15); Aspartate Amino Transferase 53 U/L (14-36); Bilirubin,Total 1.5 mg/dl (0.2-1.3); Blood Urea Nitrogen 37 mg/dl (7-17); Calcium 8.2 mg/dl (8.4-10.2); Carbon Dioxide 27 mmol/L (22.0-30.0); Chloride 97 mmol/L (98-107); Creatinine Clearance Estimated 44 mL/min (50-200); Estimated Glomerular Filt Rate 45 ml/min (>60); GFR (African American) 54 ML/MIN (>60); Globulin 2.7 g/dL (1.3-3.2); Glucose 93 mg/dl (74-100); Potassium 4.2 mmoL/L (3.5-5.1); Sodium 131 mmol/L (136-145); Total Protein,Serum 6.7 g/dl (6.3-8.2)
[2023-06-04 07:08] LABS: Eosinophils % 0.8 % (0.1-12.0); Hematocrit 37.9 % (37.0-47.0); Lymphocytes # 1.6 K/mm3 (0.7-4.5); Mean Corpuscular HGB Conc 32.4 g/dL (31.8-35.4); Mean Corpuscular Hemoglobin 35.1 pg (27.0-31.2); Mean Corpuscular Volume 108.5 fl (81-99); Mean Platelet Volume 8.6 fl (7.4-10.4); Monocytes % 5.9 % (1.7-9.3); Neutrophils # 3.2 K/mm3 (1.8-7.8); Neutrophils % 61.7 % (37.0-80.0); Platelet Count 192 K/mm3 (142-424); Red Blood Count 3.49 M/mm3 (4.20-5.40); Red Cell Distribution Width 12.8 % (11.5-17.5); White Blood Count 5.2 K/mm3 (4.8-10.8)
[2023-06-04 08:00] VITALS: BP 132/66; PULSE 87; RESP 18; TEMP 36.6; O2SAT 98
[2023-06-04 08:15] LABS: Hemoglobin 12.3 g/dL (12.2-16.2)
--- NOTE | 2023-06-04 08:30 | EXP.ACUTE.PN ---
Subjective *Date: 06/04/23 *Time: 08:30 Interval history: Patient is still having some right-sided rib pain. She denies any shortness of breath. She does have a slight headache. She wants to go home. Medical Exam Vital signs and Labs for Last 24 Hours: Vital Signs Temp Pulse Pulse Resp BP BP Pulse Ox 06/04/23 08:10 06/04/23 07:00 06/04/23 05:00 06/04/23 03:00 06/04/23 04:00 98 F 77 18 125/73 100 06/04/23 01:00 06/03/23 23:00 06/03/23 21:00 06/03/23 20:00 06/03/23 20:00 98.4 F 88 18 130/67 100 06/03/23 18:33 06/03/23 16:05 06/03/23 17:15 06/03/23 16:11 98.5 F 101 H 18 160/83 H 99 06/03/23 16:00 98 H 160/83 H 100 06/03/23 15:30 101 H 139/80 99 06/03/23 16:04 98.0 F 98 H 19 160/83 H 06/03/23 15:00 110 H 171/104 H 100 06/03/23 14:31 108 H 168/90 H 100 06/03/23 14:15 98.5 F 111 H 20 189/97 H 97 06/03/23 12:50 98.2 F 109 H 18 159/88 H 95 O2 Del Method O2 Flow Rate 06/04/23 08:10 Non-Rebreather 06/04/23 07:00 Non-Rebreather 15 06/04/23 05:00 Non-Rebreather 15 06/04/23 03:00 Non-Rebreather 15 06/04/23 04:00 Non-Rebreather 06/04/23 01:00 Non-Rebreather 15 06/03/23 23:00 Non-Rebreather 15 06/03/23 21:00 Non-Rebreather 15 06/03/23 20:00 Non-Rebreather 15 06/03/23 20:00 Non-Rebreather 06/03/23 18:33 Non-Rebreather 06/03/23 16:05 Non-Rebreather 15 06/03/23 17:15 Room Air 06/03/23 16:11 Non-Rebreather 06/03/23 16:00 Non-Rebreather 06/03/23 15:30 Non-Rebreather 06/03/23 16:04 Non-Rebreather 06/03/23 15:00 06/03/23 14:31 06/03/23 14:15 Room Air 06/03/23 12:50 Room Air Intake and Output 06/03/23 06/04/23 06/04/23 19:59 03:59 11:59 Output Total 0 / 0 Balance 0 / 0 Output: Output, Urine Amount 0 / 0 Other: Number of Unmeasured Voids 1 Weight 127 lb 8 oz 132 lb 6.4 oz Patient Weight 06/04/23 11:59 Weight 132 lb 6.4 oz Laboratory Results - last 24 hr 06/03/23 14:17: WBC 12.8 H, RBC 4.20, Hgb 14.7, Hct 44.5, MCV 106.1 H, MCH 35.0 H, MCHC 33.0, RDW 12.9, Plt Count 253, MPV 9.0, Neut % (Auto) 78.4, Lymph % (Auto) 16.0, Amador % (Auto) 4.8, Eos % (Auto) 0.3, Baso % (Auto) 0.5, Neut # (Auto) 10.0 H, Lymph # (Auto) 2.0, Amador # (Auto) 0.6, Eos # (Auto) 0.0, Baso # (Auto) 0.1, PT 10.2, INR 0.94, APTT 28.3, Sodium 132 L, Potassium 4.8, Chloride 95 L, Carbon Dioxide 21 L, Anion Gap 20.8 H, BUN 26 H, Creatinine 1.00, Estimated Creat Clear 52, Estimated GFR 55 L, Est GFR ( Amer) 67, Glucose 91, Calcium 8.9, Total Bilirubin 2.0 H, AST 78 H, ALT 59, Alkaline Phosphatase 61, Total Protein 8.5 H, Albumin 5.1 H, Globulin 3.4 H, Albumin/Globulin Ratio 1.5 06/04/23 06:11: WBC 5.2 D, RBC 3.49 L, Hgb 12.3 D, Hct 37.9, MCV 108.5 H, MCH 35.1 H, MCHC 32.4, RDW 12.8, Plt Count 192, MPV 8.6, Neut % (Auto) 61.7, Lymph % (Auto) 31.0, Amador % (Auto) 5.9, Eos % (Auto) 0.8, Baso % (Auto) 0.5, Neut # (Auto) 3.2, Lymph # (Auto) 1.6, Amador # (Auto) 0.3, Eos # (Auto) 0.0, Baso # (Auto) 0.0, Sodium 131 L, Potassium 4.2, Chloride 97 L, Carbon Dioxide 27, Anion Gap 11.2, BUN 37 H D, Creatinine 1.20 H, Estimated Creat Clear 44, Estimated GFR 45 L, Est GFR ( Amer) 54 L, Glucose 93, Calcium 8.2 L, Total Bilirubin 1.5 H, AST 53 H D, ALT 35 D, Alkaline Phosphatase 42, Total Protein 6.7, Albumin 4.0 D, Globulin 2.7, Albumin/Globulin Ratio 1.5 I & O for Labs for Last 24 Hours: Intake & Output 06/01/23 06/02/23 06/03/23 06/04/23 11:59 11:59 11:59 11:59 Output Total 0 / 0 Balance 0 / 0 Weight 132 lb 6.4 oz Constitutional: Present no acute distress Respiratory: Present decreased breath sounds (on right side) Cardiac: Present Reg Rate and Rhythm GI: Present soft and normal bowel sounds; Absent distention or tenderness Extremities: Absent edema, clubbing or cyanosis Skin: Present wounds (tera in the posterior scalp) Neuro: Present alert and awake Additional Findings:: CXR - pending Assessment and Plan *Assessment and plan (1) Closed traumatic fracture of ribs of right side with pneumothorax: Status: Acute Category: Medical Code(s): S22.41XA - Multiple fractures of ribs, right side, initial encounter for closed fracture; S27.0XXA - Traumatic pneumothorax, initial encounter (2) Laceration of scalp: Status: Acute Category: Medical Code(s): S01.01XA - Laceration without foreign body of scalp, initial encounter (3) Fracture of multiple ribs of right side: Status: Acute Category: Medical Code(s): S22.41XA - Multiple fractures of ribs, right side, initial encounter for closed fracture (4) GERD (gastroesophageal reflux disease): Status: Chronic Category: Medical Code(s): K21.9 - Gastro-esophageal reflux disease without esophagitis (5) Osteoarthritis: Status: Chronic Category: Medical Code(s): M19.90 - Unspecified osteoarthritis, unspecified site (6) Anxiety: Status: Chronic Category: Medical Code(s): F41.9 - Anxiety disorder, unspecified (7) Elevated LFTs: Status: Acute Category: Medical Code(s): R79.89 - Other specified abnormal findings of blood chemistry (8) URI (upper respiratory infection): Status: Acute Category: Medical Code(s): J06.9 - Acute upper respiratory infection, unspecified Plan Patient with nonrebreather in place. Awaiting CXR reading from this am. LFT's have improved slightly.
--- NOTE | 2023-06-04 09:25 | HMH.PHAINT1 ---
Pharmacy Intervention Comments: Confirmed with patient at bedside, no home maintenance medications taken prior to admission.
--- NOTE | 2023-06-05 14:46 | CARE MANAGER ---
Called and spoke with patient regarding recent discharge. Patient states that she has been taking the pain medication prescribed but does not get very much relief. She is aware of scheduled f/u appt.
--- NOTE | 2023-06-10 13:07 | EXP.DC.SUM ---
General Admission date:: 06/03/23 Discharge date: 06/04/23 HPI HPI HPI: Ms. Amato is a 67-year-old female who tripped over a storage box at home and hit the back of her head. She did not lose consciousness but did have right-sided pain and a headache after the fall. She went to urgent care and was found to have multiple rib fractures on the right side along with a pneumothorax and a laceration to her head. She was sent to the emergency room for further evaluation. She was given some morphine for pain. There were multiple posterior lateral rib fractures with an associated small pneumothorax. There was no intracranial hemorrhage or cervical spine injury. She was admitted for serial chest x-rays. At this time she denies headache but does complain of right-sided pain Hospital Course Hospital Course Hospital Course: The patient's x-ray showed nondisplaced rib fractures of the eighth, ninth, and 10th ribs on the right with a right-sided pneumothorax. She was admitted for follow-up films to assure resolution of the pneumothorax. Zithromax was added for URI symptoms. By 06/04/2023, she was still having more right-sided rib pain but denied any shortness of breath. She did have a slight headache but wanted to go home. Her LFTs did improve slightly. Her repeat chest x-ray showed mild platelike atelectasis versus scarring in the left retrocardiac regions. There was a small residual apical pneumothorax on the right. She was stable to be discharged home and will follow-up for repeat chest images. Exam Data for Last 24 hours Vital signs and Labs for Last 24 Hours: Temp Pulse Resp BP Pulse Ox O2 Del Method O2 Flow Rate 97.9 F 87 18 132/66 98 Non-Rebreather 15 06/04/23 08:00 06/04/23 08:00 06/04/23 08:00 06/04/23 08:00 06/04/23 08:00 06/04/23 11:25 06/04/23 07:00 Narrative: Constitutional Constitutional: no acute distress *Routine HEENT Exam Head: Present normocephalic and atraumatic Eye: Present EOMI and PERRL ENT: Present mucous membranes moist *Routine Neck Exam Neck: Present supple and full ROM Routine Chest/Breast/Axilla Exam Chest wall: Present tenderness (along right side of chest wall) *Routine Respiratory Exam Respiratory: Present decreased breath sounds (on right) and CTA bilaterally *Routine Cardiovascular Exam Cardiovascular: Present RRR *Routine Abdominal Exam Abdominal: Present soft and normoactive bowel sounds; Absent tenderness *Routine Rectal Exam Rectal:: deferred *Routine Genitalia Exam Genitalia:: deferred *Routine Extremities Exam Extremities: Absent cyanosis, clubbing or edema *Routine Skin Exam Skin: Present intact; Absent erythema Comments: scalp laceration has been closed with tera *Routine Neurological Exam Neurological: Present alert and oriented X3 DS: Diagnosis Discharge Diagnosis (1) Closed traumatic fracture of ribs of right side with pneumothorax: Status: Acute Code(s): S22.41XA - Multiple fractures of ribs, right side, initial encounter for closed fracture; S27.0XXA - Traumatic pneumothorax, initial encounter (2) Laceration of scalp: Status: Acute Code(s): S01.01XA - Laceration without foreign body of scalp, initial encounter (3) Fracture of multiple ribs of right side: Status: Acute Code(s): S22.41XA - Multiple fractures of ribs, right side, initial encounter for closed fracture (4) GERD (gastroesophageal reflux disease): Status: Chronic Code(s): K21.9 - Gastro-esophageal reflux disease without esophagitis (5) Osteoarthritis: Status: Chronic Code(s): M19.90 - Unspecified osteoarthritis, unspecified site (6) Anxiety: Status: Chronic Code(s): F41.9 - Anxiety disorder, unspecified (7) Elevated LFTs: Status: Acute Code(s): R79.89 - Other specified abnormal findings of blood chemistry (8) URI (upper respiratory infection): Status: Deleted Code(s): J06.9 - Acute upper respiratory infection, unspecified Meds Home Medications and Allergies Home Medications Medication Instructions Recorded Confirmed Type tramadol 50 mg tablet 50 mg PO TID PRN Moderate To 06/04/23 Rx Severe Pain (4-10) #30 tabs New Prescriptions to Start Prescriptions: tramadol Bri Trent Allergies Allergy/AdvReac Type Severity Reaction Status Date / Time Penicillins [PENICILLINS] Allergy Unknown Verified 06/03/23 13:10 Discharge Plan Disposition Patient Disposition: Home, Self-Care Condition: Fair Follow up Plan Follow up with: Bri Trent MD [Primary Care Provider] - 06/11/23 11:45 am Prescriptions/Medication Reconciliation: New tramadol 50 mg Tablet 50 mg PO TID PRN (Reason: Moderate To Severe Pain (4-10)) Qty: 30 0RF Problem Reconciliation Problems Reviewed?: Yes Patient Discharge Instructions ACTIVITY: Limited activity DIET: advance to your usual diet Patient Instructions: Rib Fracture, Pneumothorax, DI for Pneumothorax, DI for Rib Fracture Providers Primary Care Provider: Bri Trent Admit Provider: Bri Trent Attending Provider: Bri Trent
== END 2023-06-04 12:10 | disposition home or self-care (01) ==
LOC: UTC 13:58 → ER 14:02 → 2ND 15:38
PROVIDERS: Family Medicine; Admitting Provider Family Medicine; Emergency Provider Emergency Medicine; PCP Family Medicine; Visit Provider Family Medicine
DX: S22.41XA Multiple fractures of ribs, right side, initial encounter for closed fracture (principal); S27.0XXA Traumatic pneumothorax, initial encounter; S01.01XA Laceration without foreign body of scalp, initial encounter; K21.9 Gastro-esophageal reflux disease without esophagitis; M19.90 Unspecified osteoarthritis, unspecified site; F41.9 Anxiety disorder, unspecified; R79.89 Other specified abnormal findings of blood chemistry; J06.9 Acute upper respiratory infection, unspecified
CPT/HCPCS: 12002; 36415; 70450; 71045; 71101; 71250; 72125; 80053; 85025; 85610; 85730; 99285; G0378; J0131

== ENCOUNTER 2023-06-08 10:58 | Outpatient (CLI) | payer MEDICARE, OTHER, SELFPAY ==
--- NOTE | 2023-06-08 11:07 | XR_ITS ---
FINAL REPORT CLINICAL HISTORY: RT RIB FX fall COMPARISON: None FINDINGS: 3 views of the right ribs were obtained. There are 8th, 9th, and 10th posterior lateral rib fractures. Questionable 11th and 12th posterior rib fractures. The visualized lungs are clear. No pneumothorax is identified. IMPRESSION: Right posterior lateral 8th, 9th, and 10th rib fractures. Questionable 11th and 12th posterior rib fractures. Reviewed, Interpreted and Dictated by Mata Laughlin III, MD Transcribed by Lauren Estrella Authenticated and [facility]
--- NOTE | 2023-06-08 11:07 | XR_ITS ---
FINAL REPORT CLINICAL HISTORY: RT SIDE CHEST WALL PAIN COMPARISON: 06/04/2023 FINDINGS: Two views of the chest were obtained. The heart size and pulmonary vascularity are within normal limits. The mediastinum is normal. There is mild right midlung atelectasis or scarring. There is no pneumothorax. The bony thorax is intact. IMPRESSION: Mild right mid lung atelectasis or scarring. Reviewed, Interpreted and Dictated by Mata Laughlin III, MD Transcribed by Lauren Estrella Authenticated and . [facility]
== END 2023-06-08 23:59 ==
LOC: RAD 11:01
PROVIDERS: PCP Family Medicine; Visit Provider Family Medicine
DX: R07.89 Other chest pain (principal); S22.41XD Multiple fractures of ribs, right side, subsequent encounter for fracture with routine healing
CPT/HCPCS: 71046; 71100

== ENCOUNTER 2023-06-26 08:20 | Outpatient (CLI) | payer MEDICARE, OTHER, SELFPAY ==
--- NOTE | 2023-06-26 08:25 | XR_ITS ---
FINAL REPORT CLINICAL HISTORY: RT RIB FX, lower right rib pain COMPARISON: 06/08/2023 FINDINGS: A PA view of the chest and oblique views of the right ribs were obtained. The cardiac and mediastinal silhouettes are within normal limits. The lungs are clear. There is no pneumothorax. Oblique views of the right ribs reveal healing fracture deformity of the 8th, 9th, and 10th ribs. Findings were seen on the prior study with associated hypertrophic changes on today's exam. IMPRESSION: Healing right 8th, 9th, and 10th rib fractures. Reviewed, Interpreted and Dictated by True Marie MD Transcribed by Lauren Estrella Authenticated and [facility] [place] [place]
== END 2023-06-26 23:59 ==
PROVIDERS: PCP Family Medicine; Visit Provider Physician Assistant
DX: S22.41XD Multiple fractures of ribs, right side, subsequent encounter for fracture with routine healing (principal)
CPT/HCPCS: 71101

== ENCOUNTER 2023-08-01 09:09 | Emergency (ER) | payer MEDICARE, OTHER, SELFPAY ==
[2023-08-01 09:20] VITALS: BP 141/88; PULSE 85; RESP 19; TEMP 36.9; O2SAT 97; BMI 21.6
--- NOTE | 2023-08-01 09:27 | XR_ITS ---
PROCEDURE INFORMATION: Exam: XR Right Foot Exam date and time: 08/01/2023 9:27 AM Age: 67 years old Clinical indication: Pain; Foot; Right; Additional info: Pain and swelling TECHNIQUE: Imaging protocol: Radiologic exam of the right foot. Views: 3 or more views. COMPARISON: CR XR ANKLE RT MIN 3V 08/01/2023 9:26 AM FINDINGS: Bones/joints: Degenerative changes in the 1st metatarsal phalangeal joint. There is no evidence of acute fracture.There is no evidence of malalignment or dislocation. Soft tissues: Normal. IMPRESSION: There is no evidence of acute fracture.There is no evidence of malalignment or dislocation.
--- NOTE | 2023-08-01 09:27 | XR_ITS ---
PROCEDURE INFORMATION: Exam: XR Right Ankle Exam date and time: 08/01/2023 9:26 AM Age: 67 years old Clinical indication: Pain; Ankle; Right; Additional info: Pain and swelling TECHNIQUE: Imaging protocol: Radiologic exam of the right ankle. Views: 3 or more views. COMPARISON: No relevant prior studies available. FINDINGS: Bones/joints: Healed distal fibular fracture.. There is no evidence of acute fracture.There is no evidence of malalignment or dislocation. Soft tissues: Normal. IMPRESSION: 1. Healed distal fibular fracture.. 2. There is no evidence of acute fracture.There is no evidence of malalignment or dislocation.
--- NOTE | 2023-08-01 09:44 | ED_ITS ---
Discharge Plan Disposition Patient Disposition: Home, Self-Care Condition: Good Prescriptions Prescriptions: No Action tramadol 50 mg Tablet 50 mg PO TID PRN (Reason: Moderate To Severe Pain (4-10)) Qty: 30 0RF Referrals Follow up/Referrals: Bri Trent MD [Primary Care Provider] - See instructions Activity Restrictions/Add. Instructions Additional Instructions/Restrictions: follow up with pcp meds as ordered tylenol or motrin as needed if worsening return Clinical Impressions Clinical Impression: Gout attack Qualifiers: Gout site: ankle Gout etiology: unspecified cause Laterality: right Qualified Code(s): M10.9 - Gout, unspecified Instructions Patient Instructions: DI for Gout, Gout (Alternative Therapy), Higher Vitamin C Intake Associated With Lower Risk of Gout Discharge ED Provider: [facility]Latoya [facility] HPI General Stated complaint: right ankle pain swollen Mode of Arrival: Ambulatory Source of Information: Patient Limitations: No Limitations Time Seen by Provider: 08/01/23 09:44 Description of Symptoms (Recalled from Triage Doc. by RN): PATIENT C/O PAIN TO SIDE OF RIGHT FOOT. NO KNOWN INJURY. AREA IS RED AND WARM TO TOUCH HEENT Symptoms (Recalled from RN notes): No Resp Symptoms (Recalled from RN notes): No Skin Symptoms (Recalled from RN notes): No MS Symptoms (Recalled from RN notes): Yes Functional Status (Recalled from RN notes): WNL History of Present Illness Provider Complaint: 67 yr old female presents for rt foot pain, swelling,redness and warmth. pt states no injury- did do water aerobics yesterday, woke up this am with foot pain Related Data Previous Rx's Medication Instructions Recorded tramadol 50 mg tablet 50 mg PO TID PRN Moderate To 06/04/23 Severe Pain (4-10) #30 tabs Allergies Allergy/AdvReac Type Severity Reaction Status Date / Time Penicillins [PENICILLINS] Allergy Unknown Verified 06/03/23 13:10 Worker's Comp Is this a Worker's Comp case?: No [facility] Disclaimer: The information contained in this section may have been updated after the patient was seen, as this information can be updated by other users. 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) Family history of stroke Mother Heart attack Family history of COPD (chronic obstructive pulmonary disease) Father Cancer Social History , HOSPITAL [employer]PER[employer]OR) Smoking Status: Never smoker alcohol intake: current current occupational status: other Travel in the last 8 weeks: None ROS Obtained: Yes All systems reviewed & no additional complaints except as documented Constitutional Constitutional: Reports system reviewed and no additional complaints, except as documented Eyes Eyes: Reports system reviewed and no additional complaints, except as documented ENT Ears, Nose, Mouth, and Throat: Reports system reviewed and no additional complaints, except as documented Cardiovascular Cardiovascular: Reports system reviewed and no additional complaints, except as documented Respiratory Respiratory: Reports system reviewed and no additional complaints, except as documented Gastrointestinal Gastrointestingal: Reports system reviewed and no additional complaints, except as documented Musculoskeletal Musculoskeletal: Reports system reviewed and no additional complaints, except as documented, Reports as per HPI, Reports arthralgias, Reports joint stiffness, Reports joint swelling and Reports limited range of motion Integumentary/Breasts Skin/Breast: Reports system reviewed and no additional complaints, except as documented and Reports as per HPI Neurologic Neurologic: Reports system reviewed and no additional complaints, except as documented Hematologic/Lymphatic Henatologic/Lymphatic: Reports system reviewed and no additional complaints, except as documented Allergic/Immunologic Allergic/Immunologic: Reports system reviewed and no additional complaints, except as documented Physical Exam General General appearance: alert and in no apparent distress Head Head exam: atraumatic Eye Eye exam: Present normal appearance and PERRL ENT ENT exam: Present normal exam Respiratory Respiratory exam: Present normal lung sounds bilaterally Cardiovascular Cardiovascular exam: Present regular rate and normal rhythm Expanded Lower Extremity Exam Right: Ankle image: 1. swelling 2. redness and warmth Neurological Exam Neurological exam: Present alert Skin Skin exam: Present warm Lymphatic Lymphatic Findings: no adenopathy Medical Decision Making Medical Records Medical records reviewed: Yes I reviewed the patient's medical records. Willian Inquiry Pt receiving controlled substance: No Willian was queried for this patient: No Vital Signs: 08/01/23 09:20 Temperature 98.4 F Temperature Source Oral Pulse Rate [Left Brachial] 85 Respiratory Rate 19 Blood Pressure [Left Arm] 141/88 H Blood Pressure Mean [Left Arm] 105 Blood Pressure Source [Left Arm] Automatic Cuff Blood Pressure Position [Left Arm] Sitting 02 Sat by Pulse Oximetry 97 Oxygen Delivery Method Room Air Lab Data 08/01/23 09:50 Orders (Tests/Meds): ORDERS Category Date Time Status XR ankle RT min 3V Stat Exams 08/01/23 09:27 Ordered XR foot RT min 3V Stat Exams 08/01/23 09:27 Ordered CBC Man Diff [Complete Blood Count Man Dif] Stat Lab 08/01/23 09:32 Ordered Uric Acid Stat Lab 08/01/23 09:32 Ordered
[2023-08-01 09:57] LABS: MANUAL DIFFERENTIAL MANUAL DIFFERENTIAL (MANUAL DIFF)
[2023-08-01 10:06] LABS: Basophils # 0.1 K/mm3 (0-0.2); Basophils % 1.7 % (0.1-2.0); Eosinophils # 0.1 K/mm3 (0.0-0.4); Hematocrit 43.4 % (37.0-47.0); Hemoglobin 13.8 g/dL (12.2-16.2); Lymphocytes # 2.2 K/mm3 (0.7-4.5); Lymphocytes % 34.5 % (10-50); Mean Corpuscular HGB Conc 31.7 g/dL (31.8-35.4); Mean Corpuscular Hemoglobin 35.5 pg (27.0-31.2); Mean Platelet Volume 8.7 fl (7.4-10.4); Monocytes # 0.4 K/mm3 (0.1-1.0); Neutrophils # 3.7 K/mm3 (1.8-7.8); Neutrophils % 56.8 % (37.0-80.0); Platelet Count 198 K/mm3 (142-424); Red Blood Count 3.88 M/mm3 (4.20-5.40); Red Cell Distribution Width 13.1 % (11.5-17.5); White Blood Count 6.5 K/mm3 (4.8-10.8)
[2023-08-01 10:11] LABS: Uric Acid 6.3 mg/dl (2.5-6.2)
[2023-08-01 10:28] VITALS: BP 141/88; PULSE 85; RESP 19; TEMP 36.9; O2SAT 97
[2023-08-01 10:57] LABS: Eosinophils % 3 % (0-3); Lymphocytes % 36 % (10-50); Monocytes % 8 % (2-9); Neutrophils % 49 % (42-76); Total Cells Counted 100
[2023-08-01 11:06] LABS: Anisocytosis 1+; Macrocytosis 1+; Platelet Estimate Normal; Spherocytes 1+
== END 2023-08-01 10:31 | disposition home or self-care (01) ==
PROVIDERS: Emergency Provider Nurse Practitioner Family; PCP Family Medicine
DX: M10.071 Idiopathic gout, right ankle and foot (principal); K21.9 Gastro-esophageal reflux disease without esophagitis
CPT/HCPCS: 73610; 73630; 84550; 85007; 85014; 85018; 85048; 85049; 99212; 99214; G0463

== ENCOUNTER 2024-03-31 07:38 | Outpatient (CLI) | payer MEDICARE, OTHER, SELFPAY ==
--- NOTE | 2024-03-31 07:44 | MM_ITS ---
PROCEDURE INFORMATION: Exam: MG Bilateral Screening 3D Mammography Exam date and time: 03/31/2024 7:48 AM Age: 68 years old Clinical indication: Screening examination TECHNIQUE: Imaging protocol: Bilateral Screening tomosynthesis and 2D mammography including computer-aided detection (CAD) when performed. COMPARISON: 1. MG MM DIG SCREENING MAMM BI W/CAD 03/20/2023 7:49 AM 2. MG MM DIG SCREENING MAMM BI W/CAD 03/12/2022 8:15 AM FINDINGS: MAMMOGRAPHY: Breast composition: There are scattered areas of fibroglandular density. Mass: None. Architectural distortion: None. Calcifications: No suspicious calcifications. Asymmetric density: None. Skin thickening: None. Axillary adenopathy: None. IMPRESSION: No mammographic evidence of malignancy. Annual screening is recommended unless otherwise clinically indicated. ASSESSMENT: BI-RADS Category 1: Negative.
== END 2024-03-31 23:59 | disposition home or self-care (01) ==
LOC: RAD 07:39
PROVIDERS: PCP Family Medicine; Visit Provider Family Medicine
DX: Z12.31 Encounter for screening mammogram for malignant neoplasm of breast (principal)
CPT/HCPCS: 77063; 77067

== ENCOUNTER 2024-12-22 08:23 | Outpatient (CLI) | payer MEDICARE, OTHER, SELFPAY ==
--- OUTSIDE RECORDS SUMMARY | 2023-08-04 05:45 | XMS_ITS ---
Author Organization [facility] Address [address] [place] [id number] Care Team Providers Care Tax Audit Manager Name Role Phone Quentin Zhang Primary Care Provider [phone] Allergies Allergen (clinical drug ingredient) Drug/Non Drug Allergy documented on EMR Reaction Allergy Type Onset Date Status Penicillin Unknown Drug Allergy Active REASON FOR VISIT [facility] ER f/u Medications Medication SIG (Take, Route, Fr equency, Duration) Notes Start Date End Date Status Estrace 0.1 MG/GM as directed intravag inally 2 times a week 04/11/2022 Not-Taking Omeprazole 40 MG 1 cap(s) orally once a day Not-Taking traMADol HCl 50 MG 1 tab(s) Orally q6h prn 024 Not-Taking ALPRAZolam 0.25 MG 1 tab(s) orally 2 ti mes a day prn 08/04/2023 Active Allopurinol 100 MG 1 tab(s) orally once a day 03/01 Active predniSONE 20 MG 1 tablet Orally twice daily Active Problems Problem Type SNOMED Code ICD Code Onset Dates Problem Status W/U Status Risk Notes Problem Gout (M10.9) Active confirmed Vital Signs Weight 139 lbs 08/04/2023 Blood pressure systolic 130 mm Hg 08/04/19 24 Blood pressure diastolic 70 mm Hg 024 Heart Rate 88 /min 08/04/2023 Height 65 in 08/04/2023 BMI 23.13 kg/m2 08/04/2023 Encounters Encounter Location Date Provider Diagnosis [facility] [address] [place] [id number] 08/04/2023 Quentin Zhang Gout M10.9 and Other mixed anxiety disorders F41.3 Assessments Encounter Date Diagnosis (ICD Code) Assessment Notes Treatment Notes Treatment Clinical Notes Section Notes 08/04/2023 Gout (ICD-10 - M10.9) She will finish her current course of prednisone 08/04/2023 Other mixed anxiety disorders (ICD-10 - F41.3) Plan Of Treatment Medication Medication Name Sig Start Date Stop Date Notes ALPRAZolam 0.25 MG 1 tab(s) orally 2 times a day prn 08/03 Allopurinol 100 MG 1 tab(s) orally once a day 03/19/2022 Treatment Notes Assessment Notes Gout She will finish her current course of prednisone Next Appt Details Follow Up: prn, Reason: Progress Notes * Tammie AMATOneDOB:1955 ( 69 yo F)Acc No.[id number]:08/04/2023 Patient: Alma JEFFREY Provider: Quentin Zhang M.D. :1955 A ge:67 Y S ex:Female Date:08/04/2023 Address:[facility] [address], [place], [id number] Subjective: * Chief Complaints: * 1 . [facility] ER f/u. * HPI: A nkle/Foot: Alma developed acute onset of right ankle pain and swelling on 07/30/2022 and went to the urgent treatment center on 07/31/2022. She had x-rays and blood work. X-rays were remarkable for an old healed distal fibular fracture but nothing acute. Uric acid was elevated. She was started on a course of prednisone and within 24 hours her swelling resolved. P sychology: She is requesting a refill on alprazolam. * ROS: A LLERGY: no C ough. n o R unny nose. G ASTROENTEROLOGY: no V omiting. n o D iarrhea. U ROLOGY: no D ifficulty urinating. n o B lood in urine. * Medical History: M edical History Verified. * 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: A ppendectomy . * Hospitalization/Major Diagno stic Procedure: H and ER visit for fall 11/20/2011, [facility] ER - laceration to head 02/09/2017. * Family History: F ather: , prostate cancer. M other: , stroke, heartattack. S iblings: brother, past away at young age in an accident. 1 brother(s) . . * Social History: C URRENT TOBACCO USE S moking Status: Patient does NOT smoke, Second hand smoke exposure: No. C affeine: yes, frequency:1-2 cups a day. Marital Status: Single. Past smoking status: no, Smoking status: Does not smoke. Alcohol: Yes, Type: , Frequency: ,Years: , Determination:wine, occasional. Sexually active: no.. * Medications: T aking predniSONE 20 MG Tablet 1 tablet Orally twice daily , Taking ALPRAZolam 0.25 MG Tablet 1 tab(s) orally 2 times a day prn , Not-Taking Estrace 0.1 MG/GM Cream as directed intravaginally 2 times a week , Not-Taking Omeprazole 40 MG Capsule Delayed Release 1 cap(s) orally once a day , Not-Taking traMADol HCl 50 MG Tablet 1 tab(s) Orally q6h prn , Medication List reviewed and reconciled with the patient * Allergies: P enicillin. Objective: * Vitals: W t:139, Temp:98.1, BP:130/70, HR:88, Nurse:dm, Ht: 65, BMI:23.13. * Examination: G eneral Examination: General Appearance: N AD. E xtremities: R ight ankle shows no acute joint swelling, redness, or warmth. Range of motion is full. There is mild tenderness over the lateral malleolus.. Assessment: * Assessment: 1. G out - M10.9 (Primary) 2 . O ther mixed anxiety disorders - F41.3 ? Plan: * Treatment: 2. O ther mixed anxiety disorders Refill ALPRAZolam Tablet, 0.25 MG, 1 tab(s), orally, 2 times a day prn, 60, Refills 2. * Follow Up: p rn * Images: Billing Information: * Visit Code: 45135 Office Visit, Est Pt., Level 3. * Procedure Codes: * Electronic signature of Quentin Zhang MD on 12/22/2024 at 08:26 AM EDT Sign off status: Pending * Provider: Quentin Zhang M.D. Date: 08/04/2023 Generated for Andreia alexandra/Praveen/Hannahitting on: 0 12/22/2024 08:26 AM EDT History and Physical Notes * Examination Category Sub-Category Detail Notes Category Not es General Examination Extremities: Right ankle shows no acute joint swelling, redness, or warmth. Range of motion is full. There is mild tenderness over the lateral malleolus. General Appearance: NAD
--- OUTSIDE RECORDS SUMMARY | 2024-07-21 06:00 | XMS_ITS ---
Author Organization [facility] Address [address] [place] [id number] Care Team Providers Care Rotary Dump Operator Name Role Phone Quentin Zhang Primary Care Provider Chasidy Ghosh Unavailable [phone] Allergies Allergen (clinical drug ingredient) Drug/Non Drug [...] Inhalation every 4 hrs, prn 07/21/2024 Active Nfnyxycpy-Ltqiofeu-BN 30-2-10 MG/5ML 5-10 ml Orally 4 times a day, prn 07/21/2024 Active Vital Signs Weight 136.6 lbs 07/21/2024 Blood pressure systolic 142 mm Hg 07/21/19 25 Blood pressure diastolic 80 mm Hg 025 Heart Rate 124 /min 07/21/2024 Height 65 in 07/21/2024 BMI 22.73 kg/m2 07/21/2024 Encounters Encounter Location Date Provider Diagnosis [facility] [address] [place] [phone] 07/21/2024 Chasidy Ghosh Influenza A J10. 1 [...] needed Inhalation every 4 hrs, prn 07/21/2024 Ynsgmwxjt-Dsdntiqm-KD 30-2-1 0 MG/5ML 5-10 ml Orally 4 times a day, prn 07/21/2024 Treatment Notes Assessment Notes Influenza A Will monitor BP and HR at home while on medication., Rest, fluids, tylenol or motrin for fevers. Home until fever free for 24-48 hours without the use of medication. Next Appt Details Follow Up: prn, Reason: Progress Notes * Tammie AMATOneDOB:1955 ( 69 yo F)Acc No.[id number]:07/21/2024 Progress Notes Patient: Alma JEFFREY Provider: DEIRDRE Osborne :1955 A ge:68 Y S ex:Female Date:07/21/2024 Address:[facility] [address], [place], [id number] Pcp:Quentin Zhang Subjective: * Chief Complaints: * [...] H and ER visit for fall 11/20/2011, [facility] ER - laceration to head [...] G 2211 Complex e/[place], [address] [place], [address] Flu Test- Nasal Swab, Modifiers: QW , 77809 COVID TEST IN HOUSE, Modifiers: QW , 3077F SYST BP = 140 MM HG6 IT, 3079F DIAST BP 80-89 MM HG * Follow Up: p rn * Images: Billing Information: * Visit Code: 80718 Office Visit, Est Pt., Level 3. * Procedure Codes: G2211 Complex e/[place]. [address] [place]. [address] Flu Test- Nasal Swab. Modifiers: QW 18170 COVID TEST IN HOUSE. Modifiers: QW 3077F SYST BP = 140 MM HG6 IT. 3079F DIAST BP 80-89 MM HG. * Electronic signature of DEIRDRE Stahl on 12/22/2024 at 08:26 AM EDT Sign off status: Pending * Provider: DEIRDRE Osborne Date: 0 07/21/2024 Generated for Dinai ng/Arnulfog/eTransmitting on: 0 12/22/2024 08:26 AM EDT History and Physical Notes * HPI (History [...]
--- OUTSIDE RECORDS SUMMARY | 2024-11-29 07:15 | XMS_ITS ---
Author Organization [facility] Address [address] [place] [phone] Care Team Providers Care [employer] Machine Operator Name Role Phone Quentin Zhang Primary Care Provider Allergies Allergen (clinical drug ingredient) Drug/Non Drug Allergy documented on EMR Reaction Allergy Type Onset Date Status Penicillin Unknown Drug Allergy Active Results Component Value Reference Range Notes P-Comprehensive Metabolic Pa esthela (CMP) Reviewed date:12/05/2024 09:26:48 PM Interpretation:ast 43 Performing Lab: Notes/Report: Test performed by [facility] [address] [place] [address] , [address], [place] [address] Kip Rahman MD, Chip Mixing Machine Operator CLIA: [id number] Sodium 138 135-145 mmol/L Potassium 4.2 3.5-5.3 [...] 145 Performing Lab: Notes/Report: Test performed by [employer] [address] [place] [address] [address], [place] [address] Kip Rahman MD, Chip Mixing Machine Operator CLIA: [id number] Cholesterol 267 <200 mg/dL Triglycerides 154 <150 [...] Results: 157 Units: mg/dL % Change: - Test Date: 11/29/2024 LDL Results: 145 Units: mg/dL % Change: -7% REASON FOR VISIT yearly check up and blood work with Annual Wellness Visit, Needs labs, colon cancer screening, & Prevnar vaccine Medications Medication SIG (Take, Route, Frequency, Duration) Notes Start Date End Date Status Benzonatate 200 MG 1 capsule as needed Orally Three times a day, prn 07/28/2024 Not-Taking Dldflysgr-Lispjdjk-QQ 30-2-10 MG/5ML 5-10 ml Orally 4 times [...] Status Risk Notes Problem Generalized anxiety disorder (11953982) Generalized anxiety disorder (F41.1) Active confirmed Problem Dyslipidemia (635994070) Dyslipidemia (E78.5) Active confirmed Problem Osteopenia following menopause (disorder) (503762218) Osteopenia after menopause (M81.0) Active confirmed Problem Osteoarthritis (456605040) Osteoarthritis (M19.90) Active confirmed Vital Signs Weight 135.2 lbs 11/29/2024 Blood pressure systolic 140 mm Hg 11/30/19 25 Blood pressure diastolic 80 mm Hg 025 Heart Rate 78 /min 11/29/2024 Height 65 in 11/29/2024 BMI 22.5 kg/m2 11/29/2024 Encounters Encounter Location Date Provider Diagnosis [facility] [address] [facility] [address] [place], [place] [id number] 11/29/2024 Quentin Zhang Adult general medica l [...] referral Pending Test Test Name Order Date Bone density 11/29/2024 Cologuard 11/29/2024 Next Appt Details Follow Up: 6 Months, Reason: Progress Notes * Jose AMATOOB:1955 ( 69 yo F)Acc No.[id number]:11/29/2024 Physical Patient: Tammie JEFFREYne Provider: Quentin Zhang M.D. DOB:1955 A ge:69 Y S ex:Female Date:11/29/2024 Address:[facility] [address], [place], [id number] Subjective: * Chief Complaints: * 1 . [...] ppendectomy . * Hospitalization/Major Diagno stic Procedure: [facility] and ER visit for fall 11/20/2011, [facility] ER - laceration to head 02/09/2017. * [...] Three times a day, prn , Not-Taking Ncbncnbpu-Gcqcuthl-MJ 30-2-10 MG/5ML Syrup 5-10 ml Orally 4 [...] back pain - M54.50 9 . B CO 22.0-22.9, adult - Z68.22 Plan: * Treatment: [...] Creatinine 83 >59 - mL/min/1.73m2 * Quentin Zhagn 12/05/2024 0 9:26:32 PM EDT > See [...] riglycerides 154 H <150 - mg/dL * Leatha Quentin Ian 12/05/2024 0 9:26:32 PM EDT > See phone encounter 4.?Osteopenia after menopause?Imaging: Bone density* Mariam Osorio 11/30/2024 10:39 :29 AM EDT > faxed to [facility] Scheduling Notes: Recommend trial of OTC Voltaren cream 4 times daily. If no improvement, consider rheumatology referral??5.?Colon cancer screening?LAB: Cologroseanne* Lizbet Young 11/30/2024 01: 43:00 PM EDT >order faxed * Procedure Codes: G 0438 ANNUAL [facility] VST; PERSNL PPS INIT, G2211 Complex [...] * Images: Billing Information: * Visit Code: 72059 Office Visit, Est Pt., Level 3. Modifiers: [...] of Quentin Zhang MD on 12/22/2024 at 08:25 AM EDT Sign off status: Pending * Provider: Quentin Zhang M.D. Date: 11/29/2024 Generated for Andreia alexandra/Praveen/Lakeshia on: 12/22/2024 08:25 AM EDT History and Physical Notes * Physical Examination [...]
--- NOTE | 2024-12-22 08:24 | XR_ITS ---
FINAL REPORT CLINICAL HISTORY: SCREENING COMPARISON: 03/13/2022 FINDINGS: Using L1-4, the bone mineral density of the spine is 1.012 g/cm2, corresponding to T-score of -0.3, within normal limits. Previously was 1.032 with a T-score of -0.1. Using the left hip, the bone mineral density of the femoral neck is 0.731 g/cm2, corresponding to a T-score of -1.1, compatible with osteopenia. Previously was 0.665 with a T-score of -1.7. Using the right hip, the bone mineral density of the femoral neck is 0.716 g/cm2, corresponding to a T-score of -1.2, compatible with osteopenia. Previously was 0.729 with a T-score of -1.1. FRAX 10 year fracture risk is 0.9% for a hip fracture and 8.4% for a major osteoporotic fracture. NOTE: T-score: Standard deviation compared with peak bone mass of young adult mean. *Following the recommendations of the International Society of Bone densitometry, classification of hip BMD is based on the lower of two T-scores; total hip or femoral neck. IMPRESSION: Normal bone mineral density of the lumbar spine, with diminished bone mineral density in the bilateral hips consistent with osteopenia. Reviewed, Interpreted and Dictated by Bri Arguello MD Transcribed by Lauren Estrella Authenticated and [facility]
--- OUTSIDE RECORDS SUMMARY | 2024-12-22 08:25 | XMS_ITS | Patient Health Record ---
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 Name Role Phone Quentin Zhang Primary Care Provider Chasidy Ghosh Unavailable [phone] Allergies Allergen (clinical drug ingredient) Drug/Non Drug Allergy documented on EMR Reaction Allergy Type Onset Date Status Penicillin Unknown Drug Allergy Active Results Component Value Reference Range Notes P-Lipid Panel Reviewed date:12/05/2024 09:26:48 PM Interpretation:chol 267, trigd 154, non-hdl 176, ldl 145 Performing Lab: Notes/Report: Test performed by [facility] [employer] [address] [place] [address] , [address], [place] [address] Kip Rahman MD, Candy Separator [employer] CLIA: [id number] Cholesterol 267 <200 mg/dL Triglycerides 154 <150 [...] Results: 145 Units: mg/dL % Change: -7% P-Comprehensive Metabolic Pa esthela (CMP) Reviewed date:12/05/2024 09:26:48 PM Interpretation:ast 43 Performing Lab: Notes/Report: Test performed by [facility] , [address], [place] [address] Kip Rahman MD, Candy Separator [employer]ro[employer] CLIA: [id number] Sodium 138 135-145 mmol/L Potassium 4.2 3.5-5.3 [...] 0.7 <0.2-1.2 mg/dL A/G Ratio 1.8 1.1-2.5 Mammogram Reviewed date:04/07/2024 02:59:58 PM Interpretation:Negative; annual f/u Performing Lab: Notes/Report: Negative; annual f/u Influenza Screen (in house) Reviewed date:07/21/2024 10:13:31 AM Interpretation: Performing Lab: Notes/Report: results Pos A Covid test (in house) Reviewed date:07/21/2024 10:13:24 AM Interpretation: Performing Lab: Notes/Report: Result: Neg Medications Medication SIG (Take, Route, Frequency, Duration) Notes Start Date End Date Status Benzonatate 200 MG 1 capsule as needed Orally Three times a day, prn 07/28/2024 Not-Taking Opcbnrecq-Wjrhdtfx-HC 30-2-10 MG/5ML 5-10 ml Orally 4 times a day, prn 07/21/2024 Not-Taking Tamiflu 75 MG 1 capsule Orally Twi ce a day; Duration: 5 day(s) 07/21/2024 Not-Taking Rosuvastatin Calcium 10 MG 1 tablet Orally Once a day; Duration: 30 days 12/07/2024 Active Albuterol Sulfate HFA 108 (90 Base) MCG/ACT 1-2 puffs as needed Inhalation every 4 hrs, prn 07/21/2024 Not-Taking ALPRAZolam 1 MG 1 tablet Orally Twic e a day 11/29/2024 Active Immunizations Vaccine Route Administration Date Status Comme nts COVID 19 Pfizer Unknown 08/23/2020 Administered COVID 19 Pfizer Unknown 09/20/2020 Administered COVID 19 Pfizer Unknown 04/17/2021 Administered Fluzone High Dose (65yr and older) IM Intramuscular 03/06/2022 Administered Fluzone High Dose (65yr and older) Unknown 04/17/2023 Administered Fluzone Quad (6months&older) IM Intramuscular 06/03/2016 Administered Fluzone Quad (6months&older) IM Intramuscular 04/22/2017 Administered Fluzone Quad (6months&older) IM Intramuscular 04/07/2018 Administered Fluzone Quad (6months&older) IM Intramuscular 03/25/2019 Administered Fluzone Quad (6months&older) IM Intramuscular 03/09/2020 Administered Fluzone Quad (6months&older) IM Intramuscular 06/13/2021 Administered Tetanus Tdap-Adacel (over 7yrs) Unknown 07/27/2008 Administered xFlu shot-36 months and older IM Intramuscular 04/14/2011 Administered xFluzone (6mos and older)-trivalent IM Intramuscular 04/21/2013 Administered xFluzone (6mos and older)-trivalent IM Intramuscular 03/29/2014 Administered xFluzone High Dose-private (65yr&older) Unknown 04/08/2024 Administered xFluzone Intradermal (18-64yrs)-trivalent ID Intradermal 06/03/2012 Administered Problems Problem Type SNOMED Code ICD Code Onset Dates Problem Status W/U Status Risk Notes Problem Gout (06727389) Gout (M10.9) Active confirmed Problem Essential hypertension (61386341) Essential hypertension (I10) Active confirmed Problem Osteopenia (272586959) Osteopenia (M85.80) Active confirmed Problem Osteoarthritis (300122887) Osteoarthritis (M19.90) Active confirmed Problem Alcohol abuse (76564964) Alcohol abuse (F10.10) Active confirmed Problem Primary generalised osteoarthritis (320981030) Primary generalized (osteo)arthritis (M15.0) Active confirmed Problem Generalized anxiety disorder (77297607) Generalized anxiety disorder (F41.1) Active confirmed Problem Obstructive sleep apnea syndrome (disorder) (32804599) Obstructive sleep apnea (adult) (pediatric) (G47.33) Active confirmed Problem Anxiety disorder (798018116) Other mixed anxiety disorders (F41.3) Active confirmed Problem Localized, primary osteoarthritis of the hand (279181624) Primary osteoarthritis, right hand (M19.041) Active confirmed Problem Localized, primary osteoarthritis of the hand (762538468) Primary osteoarthritis, left hand (M19.042) Active confirmed Problem Gastroesophageal reflux disease (disorder) (376048479) Chronic GERD (K21.9) Active confirmed Problem Atrophy of vagina (084036261) Vaginal atrophy (N95.2) Active confirmed Problem Dyslipidemia (408125749) Dyslipidemia (E78.5) Active confirmed Problem Squamous cell carcinoma (910005154) Squamous cell carcinoma (C44.92) Active confirmed Problem Osteopenia following menopause (disorder) (730353811) Osteopenia after menopause (M81.0) Active confirmed Problem Gastroesophageal reflux disease (859877973) Gastroesophageal reflux disease, unspecified whether esophagitis present (K21.9) Active confirmed Vital Signs Heart Rate 78 /min 11/29/2024 Blood pressure diastolic 80 mm Hg 11/29/2024 Height 65 in 11/29/2024 Blood pressure systolic 140 mm Hg 11/29/2024 Weight 135.2 lbs 11/29/2024 BMI 22.5 kg/m2 11/29/2024 Encounters Encounter Location Date Provider Diagnosis [facility] [address] [place] [address] [place] [id number] 07/21/2024 Chasidy Ghosh Influenza A J10.1 [facility] [place] [place] [id number] 11/29/2024 Quentin Zhang Adult general medica l examination Z00.00 ; Generalized anxiety disorder F41.1 ; Dyslipidemia E78.5 ; Osteopenia after menopause M81.0 ; Colon cancer screening Z12.11 ; Snoring R06.83 ; Osteoarthritis M19.90 ; Lumbar back pain M54.50 and BMI 22.0-22.9, adult Z68.22 [facility] [address] [place] [address] [place] [id number] 07/28/2024 Chasidy Ghosh Influenza A J10.1 [facility] [place] [place] [id number] 12/05/2024 Quentin Zhang Assessments Encounter Date Diagnosis (ICD Code) Assessment Notes Treatment Notes Treatment Clinical Notes Section Notes 07/21/2024 Influenza A (ICD-10 - J10.1) Will monitor BP and HR at home while on medication., Rest, fluids, tylenol or motrin for fevers. Home until fever free for 24-48 hours without the use of medication. 07/28/2024 Influenza A (ICD-10 - J10.1) 11/29/2024 Generalized anxiety disorder (ICD-10 - F41.1) 11/29/2024 Adult general medical examination (ICD-10 - Z00.00) Patient instructed to return to office Annually for Annual Wellness Visits to include annual screenings of Pain assessment, Functional Ability assessment, Cognitive Ability assessment, Fall Risk assessment, Depression screening and Bladder control screening. 11/29/2024 Dyslipidemia (ICD-10 - E78.5) 11/29/2024 Osteopenia after menopause (ICD-10 - M81.0) Recommend trial of OTC Voltaren cream 4 times daily. If no improvement, consider rheumatology referral 11/29/2024 Colon cancer screening (ICD-10 - Z12.11) 11/29/2024 Snoring (ICD-10 - R06.83) 11/29/2024 Osteoarthritis (ICD-10 - M19.90) 11/29/2024 Lumbar back pain (ICD-10 - M54.50) 11/29/2024 BMI 22.0-22.9, adult (ICD-10 - Z68.22) Plan Of Treatment Pending Test Test Name Order Date Bone density 11/29/2024 sleep study 11/30/2024 Cologuard 03/06/2022 Cologuard 11/29/2024 Insurance Providers Payer Name Payer Address Payer Phone Subscriber Number Group Number Insured Name Patient Relationship to Insured Coverage Start Date Coverage End Date MEDICARE PART B [address] [address] [place] [id number] Alma Amato Self - patient is the insured [employer] [address] [address] [place] [id number] Alma Amato Self - patient is the insured Medications Administered Medication Instructions Date of Administration Dosage Notes Dexamethasone 02/23/2018 1 mL Dexamethasone 03/04/2018 1 mL Medical (General) History Medical History History ICD Code Generalized anxiety disorder Osteopenia Dyslipidemia 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 Surgery Date(Month/Year) Appendectomy Hospitalization History Reason Date(Month/Year) [facility] ER - laceration [facility] head 02/09/2017 [facility] and ER visit for fall 11/20/2011
== END 2024-12-22 23:59 | disposition home or self-care (01) ==
LOC: RAD 08:23
PROVIDERS: PCP Family Medicine; Visit Provider Family Medicine
DX: Z13.820 Encounter for screening for osteoporosis (principal); M85.88 Other specified disorders of bone density and structure, other site
CPT/HCPCS: 77080

== ENCOUNTER 2025-04-06 07:36 | Outpatient (CLI) | payer MEDICARE, OTHER, SELFPAY ==
--- OUTSIDE RECORDS SUMMARY | 2024-07-21 05:00 | XMS_ITS ---
Author Organization [facility] Address [address] [place] [id number] Care Team Providers Care Store Mgr Name Role Phone Quentin Zhang Primary Care Provider Chasidy Ghosh Unavailable [phone] Allergies Allergen (clinical drug ingredient) Drug/Non Drug Allergy documented on EMR Reaction Allergy Type Onset Date Status Penicillin Unknown Drug Allergy Active Results Component Value Reference Range Notes Influenza Screen (in house) Reviewed date:07/21/2024 10:13:31 AM Interpretation: Performing Lab: Notes/Report: results Pos A Covid test (in house) Reviewed date:07/21/2024 10:13:24 AM Interpretation: Performing Lab: Notes/Report: Result: Neg REASON FOR VISIT chest congestion ,fever, chills Medications Medication SIG (Take, Route, Frequency, Duration) Notes Start Date End Date Status Tamiflu 75 MG 1 capsule Orally Twi ce a day; Duration: 5 day(s) 07/21/2024 Active Albuterol Sulfate HFA 108 (90 Base) MCG/ACT 1-2 puffs as needed Inhalation every 4 hrs, prn 07/21/2024 Active Yhowzlhjs-Askwrwqw-OP 30-2-10 MG/5ML 5-10 ml Orally 4 times a day, prn 07/21/2024 Active Vital Signs Weight 136.6 lbs 07/21/2024 Blood pressure systolic 142 mm Hg 07/21/19 25 Blood pressure diastolic 80 mm Hg 025 Heart Rate 124 /min 07/21/2024 Height 65 in 07/21/2024 BMI 22.73 kg/m2 07/21/2024 Encounters Encounter Location Date Provider Diagnosis [facility] [address] [place] [phone] 07/21/2024 Chasidy Ghosh Influenza A J10. 1 Assessments Encounter Date Diagnosis (ICD Code) Assessment Notes Treatment Notes Treatment Clinical Notes Section Notes 07/21/2024 Influenza A (ICD-10 - J10.1) Will monitor BP and HR at home while on medication., Rest, fluids, tylenol or motrin for fevers. Home until fever free for 24-48 hours without the use of medication. Plan Of Treatment Medication Medication Name Sig Start Date Stop Date Notes Tamiflu 75 MG 1 capsule Orally Twi ce a day; Duration: 5 day(s) 07/21/2024 Albuterol Sulfate HFA 108 (9 0 Base) MCG/ACT 1-2 puffs as needed Inhalation every 4 hrs, prn 07/21/2024 Ibmwliysf-Uchnwhew-VH 30-2-1 0 MG/5ML 5-10 ml Orally 4 times a day, prn 07/21/2024 Treatment Notes Assessment Notes Influenza A Will monitor BP and HR at home while on medication., Rest, fluids, tylenol or motrin for fevers. Home until fever free for 24-48 hours without the use of medication. Next Appt Details Follow Up: prn, Reason: Progress Notes * Tammie AMATOneDOB:1955 ( 69 yo F)Acc No.[id number]:07/21/2024 Progress Notes Patient: Alma JEFFREY Provider: DEIRDRE Osborne :1955 A ge:68 Y S ex:Female Date:07/21/2024 Address:[facility] [address], [place], [id number] Pcp:Quentin Zhang Subjective: * Chief Complaints: * 1 . Chest congestion ,fever, chills. * HPI: E NT/respiratory: The patient is here today with c/o fever, chills and congestion. Pt states this started on Thursday. Pt states the cough is deep in her chest with wheezing. Pt also c/o sore throat. 68 year old female presents with c/o sore throat. c/o cough. c/o Fever. c/o Short of Breath. Denies : Chest Pain. * ROS: D ERMATOLOGY: no R roddy. n o H constanza. G ASTROENTEROLOGY: no N ausea. n o V omiting. n o D iarrhea.? U ROLOGY: no D ifficulty urinating. n o B lood in urine. * Medical History: M edical History Verified. * 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: A ppendectomy . * Hospitalization/Major Diagno stic Procedure: H and ER visit for fall 11/20/2011, [facility] ER - laceration to head 02/09/2017. * [...] Determination:wine, occasional. Sexually active: no.. * Medications: D iscontinued ALPRAZolam 0.25 MG Tablet 1 tab(s) orally 2 times a day prn , Discontinued predniSONE 20 MG Tablet 1 tablet Orally twice daily , Discontinued Allopurinol 100 MG Tablet 1 tab(s) orally once a day , Discontinued Estrace 0.1 MG/GM Cream as directed intravaginally 2 times a week , Discontinued Omeprazole 40 MG Capsule Delayed Release 1 cap(s) orally once a day , Discontinued traMADol HCl 50 MG Tablet 1 tab(s) Orally q6h prn , Medication List reviewed and reconciled with the patient * Allergies: P enicillin. Objective: * Vitals: W t:136.6, Temp:99.4, BP:142/80, HR:124, O2 Sat:99% on RA, Nurse:DENIA, Ht: 65, BMI:22.73. * Examination: E NT/Respiratory: General Appearance: Does not appear to feel well. E ars: a uditory canals normal bilaterally, TM's WNL. N ose : turbinates red, congested.?Oral cavity : n o erythema or exudate seen on pharynx. N kellen : n o cervical lymphadenopathy. H eart : R RR, normal S1 S2, no murmurs. L ungs: c lear to auscultation bilaterally. Assessment: * Assessment: 1. I yulisa A - J10.1 (Primary) Plan: * Treatment: Value Reference Range r esults Pos A * Lizbet Young 07/21/2024 9:4 4:21 AM > , Provider reviewed results while patient in office.Chasidy Ghosh 07/21/2024 10:13:28 AM > ?LAB: Covid test (in house) (Collection Date & Time - 07/21/2024)* Value Reference Range R esult: Neg * Lizbet Young 07/21/2024 9:4 7:55 AM > , Provider reviewed results while patient in office.Chasidy Ghosh 07/21/2024 10:13:21 AM > Notes: Will monitor BP and HR at home while on medication., Rest, fluids, tylenol or motrin for fevers. Home until fever free for 24-48 hours without the use of medication.?? * Procedure Codes: G 2211 Complex e/[place], [address] [place], [address] Flu Test- Nasal Swab, Modifiers: QW , 44550 COVID TEST IN HOUSE, Modifiers: QW , 3077F SYST BP = 140 MM HG6 IT, 3079F DIAST BP 80-89 MM HG * Follow Up: p rn * Images: Billing Information: * Visit Code: 37903 Office Visit, Est Pt., Level 3. * Procedure Codes: G2211 Complex e/[place]. [address] [place] [address] Flu Test- Nasal Swab. Modifiers: QW 17738 COVID TEST IN HOUSE. Modifiers: QW 3077F SYST BP = 140 MM HG6 IT. 3079F DIAST BP 80-89 MM HG. * Electronic signature of DEIRDRE Stahl on 04/06/2025 at 07:39 AM EST Sign off status: Pending * Provider: DEIRDRE Osborne Date: 0 07/21/2024 Generated for Dinai nasrin/Praveen/eTransmitting on: 1 06/06/2024 07:39 AM EST History and Physical Notes * HPI (History of Present Illness) Category Sub-Category Detail Notes Category Not es ENT/respiratory sore throat Short of Breath Chest Pain cough Fever Examination Category Sub-Category Detail Notes Category Not es ENT/Respiratory Oral cavity : no erythema or exudate s een on pharynx Ears: auditory canals norm al bilaterally, TM's WNL Neck : no cervical lymphade nopathy Heart : RRR, normal S1 S2, n o murmurs Lungs: clear to auscultatio n bilaterally General Appearance: Does not appear to f eel well Nose : turbinates red, delmi ested
--- OUTSIDE RECORDS SUMMARY | 2024-11-29 06:15 | XMS_ITS ---
Author Organization [facility] Address [address] [place] [id number] Care Team Providers Care [employer] Consultant Name Role Phone Quentin Zhang Primary Care Provider Allergies Allergen (clinical drug ingredient) Drug/Non Drug Allergy documented on EMR Reaction Allergy Type Onset Date Status Penicillin Unknown Drug Allergy Active Results Component Value Reference Range Notes P-Comprehensive Metabolic Pa esthela (CMP) Reviewed date:12/05/2024 09:26:48 PM Interpretation:ast 43 Performing Lab: Notes/Report: Test performed by [employer] [employer] [address] [place] [address] , [address], [place] [address] Kip Rahman MD, Medicine Aide CLIA: [id number] Sodium 138 135-145 mmol/L Potassium 4.2 3.5-5.3 mmol/L Chloride 101 97-108 mmol/L CO2 23 20-32 mmol/L Glucose 92 65-99 mg/dL BUN 17 8-23 mg/dL Creatinine 0.78 0.50-1.00 mg/dL Calcium 9.4 8.6-10.4 mg/dL eGFR by Creatinine 83 >59 mL/min/1.73m2 Protein 7.1 6.0-8.3 g/dL Albumin 4.6 3.5-5.3 g/dL Alkaline Phosphatase 51 35-121 IU/L ALT (SGPT) 23 <5-47 IU/L AST (SGOT) 43 <5-40 IU/L Bilirubin, Total 0.7 <0.2-1.2 mg/dL A/G Ratio 1.8 1.1-2.5 P-Lipid Panel Reviewed date:12/05/2024 09:26:48 PM Interpretation:chol 267, trigd 154, non-hdl 176, ldl 145 Performing Lab: Notes/Report: Test performed by [facility] [address] [place] [address] [address], [place] [address] Kip Rahman MD, Medicine Aide CLIA: [id number] Cholesterol 267 <200 mg/dL Triglycerides 154 <150 mg/dL HDL Cholesterol 91 >39 mg/dL Cholesterol / HDL Ratio 2.93 0.00-4.44 Ratio Non-HDL Cholesterol 176 <130 mg/dL LDL Cholesterol (Calculation) 145 <130 mg/dL LDL Cholesterol Levels* Less than 100 mg/dL Optimal 100 to 129 mg/dL Near Optimal/ Above Optimal 130 to 159 mg/dL Borderline High 160 to 189 mg/dL High 190 mg/dL and above Very High * Categories as recommended by the 2004 ATPIII guidelines LDL/HDL Ratio 1.6 <3.3 Ratio LDL Cholesterol Patient History Test Date: 03/07/2022 LDL Results: 157 Units: mg/dL % Change: - ------- Test Date: 11/29/2024 LDL Results: 145 Units: mg/dL % Change: -7% Bone density Reviewed date:12/27/2024 08:40:12 AM Interpretation:osteopenia bilateral hips Performing Lab: Notes/Report: osteopenia bilateral hips Bone density osteopenia bilateral hips Bone density Reviewed date:12/27/2024 08:40:12 AM Interpretation:osteopenia bilateral hips Performing Lab: Notes/Report: osteopenia bilateral hips Bone density osteopenia bilateral hips REASON FOR VISIT yearly check up and blood work with Annual Wellness Visit, Needs labs, colon cancer screening, & Prevnar vaccine Medications Medication SIG (Take, Route, Frequency, Duration) Notes Start Date End Date Status Benzonatate 200 MG 1 capsule as needed Orally Three times a day, prn 07/28/2024 Not-Taking Ktmttbllk-Zsyrsfoe-GX 30-2-10 MG/5ML 5-10 ml Orally 4 times a day, prn 07/21/2024 Not-Taking Tamiflu 75 MG 1 capsule Orally Twi ce a day; Duration: 5 day(s) 07/21/2024 Not-Taking Albuterol Sulfate HFA 108 (90 Base) MCG/ACT 1-2 puffs as needed Inhalation every 4 hrs, prn 07/21/2024 Not-Taking ALPRAZolam 1 MG 1 tablet Orally Twic e a day 11/29/2024 Active Problems Problem Type SNOMED Code ICD Code Onset Dates Problem Status W/U Status Risk Notes Problem Generalized anxiety disorder (42662906) Generalized anxiety disorder (F41.1) Active confirmed Problem Dyslipidemia (276281426) Dyslipidemia (E78.5) Active confirmed Problem Osteopenia following menopause (disorder) (246187238) Osteopenia after menopause (M81.0) Active confirmed Problem Osteoarthritis (911870620) Osteoarthritis (M19.90) Active confirmed Vital Signs Weight 135.2 lbs 11/29/2024 Blood pressure systolic 140 mm Hg 11/30/19 25 Blood pressure diastolic 80 mm Hg 025 Heart Rate 78 /min 11/29/2024 Height 65 in 11/29/2024 BMI 22.5 kg/m2 11/29/2024 Encounters Encounter Location Date Provider Diagnosis [facility] [address] [place] [phone] 11/29/2024 Quentin Zhang Adult general medica l examination Z00.00 ; Generalized anxiety disorder F41.1 ; Dyslipidemia E78.5 ; Osteopenia after menopause M81.0 ; Colon cancer screening Z12.11 ; Snoring R06.83 ; Osteoarthritis M19.90 ; Lumbar back pain M54.50 and BMI 22.0-22.9, adult Z68.22 Assessments Encounter Date Diagnosis (ICD Code) Assessment Notes Treatment Notes Treatment Clinical Notes Section Notes 11/29/2024 Adult general medical examination (ICD-10 - Z00.00) Patient instructed to return to office Annually for Annual Wellness Visits to include annual screenings of Pain assessment, Functional Ability assessment, Cognitive Ability assessment, Fall Risk assessment, Depression screening and Bladder control screening. 11/29/2024 Generalized anxiety disorder (ICD-10 - F41.1) 11/29/2024 Dyslipidemia (ICD-10 - E78.5) 11/29/2024 Osteopenia after menopause (ICD-10 - M81.0) Recommend trial of OTC Voltaren cream 4 times daily. If no improvement, consider rheumatology referral 11/29/2024 Colon cancer screening (ICD-10 - Z12.11) 11/29/2024 Snoring (ICD-10 - R06.83) 11/29/2024 Osteoarthritis (ICD-10 - M19.90) 11/29/2024 Lumbar back pain (ICD-10 - M54.50) 11/29/2024 BMI 22.0-22.9, adult (ICD-10 - Z68.22) Plan Of Treatment Medication Medication Name Sig Start Date Stop Date Notes ALPRAZolam 1 MG 1 tablet Orally Twice a day 11/29/2024 Treatment Notes Assessment Notes Adult general medical examination Patien t instructed to return to office Annually for Annual Wellness Visits to include annual screenings of Pain assessment, Functional Ability assessment, Cognitive Ability assessment, Fall Risk assessment, Depression screening and Bladder control screening. Osteopenia after menopause Recommend tri al of OTC Voltaren cream 4 times daily. If no improvement, consider rheumatology referral Pending Test Test Name Order Date Cologuard 11/29/2024 Next Appt Details Follow Up: 6 Months, Reason: Progress Notes * Tammie AMATOneDOB:1955 ( 69 yo F)Acc No.[id number]:11/29/2024 Physical Patient: Alma JEFFREY Provider: Quentin Zhang M.D. :1955 A ge:69 Y S ex:Female Date:11/29/2024 Address:[facility] [address], [place], [id number] Subjective: * Chief Complaints: * 1 . yearly check up and blood work with Annual Wellness Visit. 2. Needs labs, colon cancer screening, & Prevnar vaccine. * HPI: P sychology: Alma returns for follow-up and requesting a refill on her Ativan. Anxiety symptoms are controlled with current medication. W rist/Hand: She complains of increasing pain in the MP joint of her right hand which has progressed gradually over time. She has not tried any medication. C onstitutional: States she only sleeps about 6 hours per night and and is usually up a couple of times. She is aware of snoring. C ardiology: She has a history of hyperlipidemia and a family history of cardiovascular disease. She is due for blood work. * ROS: D ERMATOLOGY: no R roddy. n o H constanza. G ASTROENTEROLOGY: no N ausea. n o V omiting. n o D iarrhea.? O PTHALMOLOGY: Negative for d enies issues with vision. U ROLOGY: no D ifficulty urinating. n o B lood in urine. * Medical History: G eneralized anxiety disorder, Osteopenia, Dyslipidemia. * 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: A ppendectomy . * Hospitalization/Major Diagno stic Procedure: H and ER visit for fall 11/20/2011, [facility] ER - laceration to head 02/09/2017. * Family History: F ather: , prostate cancer. M other: , stroke, heartattack. S iblings: brother, at young age in an accident. 1 [...] Sexually active: no.. * Medications: T aking ALPRAZolam 1 MG Tablet 1 tablet Orally Twice a day , Not-Taking Tamiflu 75 MG Capsule 1 capsule Orally Twice a day , Not-Taking Albuterol Sulfate HFA 108 (90 Base) MCG/ACT Aerosol Solution 1-2 puffs as needed Inhalation every 4 hrs, prn , Not- Taking Benzonatate 200 MG Capsule 1 capsule as needed Orally Three times a day, prn , Not-Taking Fxighprgb-Rtjmmbnf-EB 30-2-10 MG/5ML Syrup 5-10 ml Orally 4 times a day, prn , Medication List reviewed and reconciled with the patient * Allergies: P enicillin. Objective: * Vitals: W t: 135.2, Temp: 97.6, BP: 140/80, HR: 78, Nurse: timbo, Ht: 65, BMI:22.5. * Examination: G eneral Examination: General Appearance: N AD. H EENT: u nremarkable.?Oral cavity: n o lesions, mucosa moist and WNL, no erythema. N kellen: s upple, no lymphadenopathy. H eart: R SR. L ungs: c lear to auscultation. E xtremities: n o leg edema. T here is bony prominence over the MCP joints of both thumbs, R>L, with tenderness at the right MCP joint.. * Physical Examination: G ENERAL: Pain Assessment: P ain level: , on a scale of 0 to 10 (10 being extreme pain). F unctional Status Assessment: P atient response to how often physical health interferes with daiy activities: Able to perform ADLs-including meal preparation, grocery shopping, housework, laundry, taking medications, or handling finances. Cognitive Status: Alert and oriented. Ambulation Status: Fully ambulatory. F all Risk Assessment: I ndependant in ambulation, adequate lighting in home. Patient has NOT fallen or had trouble walking within the past 12 months. D epression Screening: D enies depressed mood or anxiety. Describes emotional health as:. B ladder Control Screening: D enies problems.? Assessment: * Assessment: 1. A dult general medical examination - Z00.00 (Primary) 2 . G eneralized anxiety disorder - F41.1 3 . D yslipidemia - E78.5 4 . O steopenia after menopause - M81.0 5 . C olon cancer screening - Z12.11 6. S noring - R06.83 7 . O steoarthritis - M19.90 8 .?Lumbar back pain - M54.50 9 . B TX 22.0-22.9, adult - Z68.22 Plan: * Treatment: 2. G eneralized anxiety disorder Refill ALPRAZolam Tablet, 1 MG, 1 tablet, Orally, Twice a day, 60, Refills 2. 3. D yslipidemia L AB: P-Comprehensive Metabolic Panel (CMP) (Collection Date & Time - 11/29/2024 10:33 AM) a st 43 Value Reference Range A /G Ratio 1.8 1.1-2.5 - * A lbumin 4.6 3.5-5.3 - g/dL * A lkaline Phosphatase 51 35-121 - IU/L * A LT (SGPT) 23 <5-47 - IU/L * A ST (SGOT) 43 H <5-40 - IU/L * B ilirubin, Total 0.7 <0.2-1.2 - mg/dL * B UN 17 8-23 - mg/dL * C alcium 9.4 8.6-10.4 - mg/dL * C hloride 101 97-108 - mmol/L * C O2 23 20-32 - mmol/L * C reatinine 0.78 0.50-1.00 - mg/dL * G lucose 92 65-99 - mg/dL * P otassium 4.2 3.5-5.3 - mmol/L * S odium 138 135-145 - mmol/L * P rotein 7.1 6.0-8.3 - g/dL * e GFR by Creatinine 83 >59 - mL/min/1.73m2 * Quentin Zhang 12/05/2024 0 9:26:32 PM EDT > See phone encounter ?LAB: P-Lipid Panel (Collection Date & Time - 11/29/2024 10:33 AM)?chol 267, trigd 154, non-hdl 176, ldl 145* Value Reference Range C holesterol / HDL Ratio 2.93 0.00-4.44 - Ratio * C holesterol 267 H <200 - mg/dL * H DL Cholesterol 91 >39 - mg/dL * L DL Cholesterol (Calculation) 145 H <130 - mg/d L * L DL/HDL Ratio 1.6 <3.3 - Ratio * N on-HDL Cholesterol 176 H <130 - mg/dL * T riglycerides 154 H <150 - mg/dL * Quentin Zhang 12/05/2024 0 9:26:32 PM EDT > See phone encounter 4.?Osteopenia after menopause?Imaging: Bone density (Performed Date - 12/22/2024)?osteopenia bilateral hips* Value Reference Range B one density osteopenia bilateral hips * Mariam Osorio 11/30/2024 10:39 :29 AM EDT > faxed to [facility] Quentin Kitchen 12/27/2024 08:40:04 AM EDT > See phone encounter Notes: Recommend trial of OTC Voltaren cream 4 times daily. If no improvement, consider rheumatology referral??5.?Colon cancer screening?LAB: Cologuard* Lizbet Young 11/30/2024 01: 43:00 PM EDT >order faxed * Procedure Codes: G 0438 ANNUAL [facility] VST; PERSNL PPS INIT, G2211 Complex e/m visit add on, 1090F PRES/ABSN URINE INCON ASSESS, 3288F FALL RISK ASSESSMENT DOCD, 1170F FXNL STATUS ASSESSED, 1159F MED LIST DOCD IN RCRD, 1003F LEVEL OF ACTIVITY ASSESS, 1036F TOBACCO NON-USER, G9899 Scrn jorge perf rslts doc, G8420 BMI<30 AND >=22 CALC & DOCU, G8950 PREHTN/HTN BP DOC INDCD F/U DOC, G8753 MOST RECENT SYSTOLIC BP >= 140MM HG, G8754 MOST RECENT DIASTOLIC BP < 90MM HG * Preventive Medicine: Counseling: E motional health: E ncouraged to try connecting with family or friends to boost mood. B ladder control: D iscussed ways to control/manage leakage of urine. Exercise: A dvised to start, increase or maintain level of exercise/physical activity. I njury prevention: D iscussed fall prevention. Discussed need for cane/walker. Potential trip hazards discussed. Immunizations: P neumococcal r ecommended. I nfluenza u p to date, recommended seasonally. Screening / Special Tests: M ammogram R ecent history: 03/31/2024, negative.?Colonoscopy R ecent history:, recommended. B one mineral Density R ecent history: 03/13/2022, osteopenia, recommended. * Follow Up: 6 Months * Images: Billing Information: * Visit Code: 44700 Office Visit, Est Pt., Level 3. Modifiers: 25 * Procedure Codes: G0438 ANNUAL [facility] VST; PERSNL PPS INIT. G2211 Complex e/m visit add on. 1090F PRES/ABSN URINE INCON ASSESS. 3288F FALL RISK ASSESSMENT DOCD. 1170F FXNL STATUS ASSESSED. 1159F MED LIST DOCD IN RCRD. 1003F LEVEL OF ACTIVITY ASSESS. 1036F TOBACCO NON-USER. G9899 Scrn jorge perf rslts doc. G8420 BMI<30 AND >=22 CALC & DOCU. G8950 PREHTN/HTN BP DOC INDCD F/U DOC. G8753 MOST RECENT SYSTOLIC BP >= 140MM HG. G8754 MOST RECENT DIASTOLIC BP < 90MM HG. * Electronic signature of Quentin Zhang MD on 04/06/2025 at 07:39 AM EST Sign off status: Pending * Provider: Quentin Zhang M.D. Date: 0 11/29/2024 Generated for Andreia alexandra/Praveen/Lakeshia on: 06/06/2024 07:39 AM EST History and Physical Notes * Physical Examination Category Sub-Category Detail Notes Section Note s GENERAL Pain Assessment: Pain level: , o n a scale of 0 to 10 (10 being extreme pain) Functional Status Assessment: Patient response to how often physical health interferes with daiy activities: Able to perform ADLs-including meal preparation, grocery shopping, housework, laundry, taking medications, or handling finances. Cognitive Status: Alert and oriented. Ambulation Status: Fully ambulatory Fall Risk Assessment: Independant in amb ulation, adequate lighting in home. Patient has NOT fallen or had trouble walking within the past 12 months Depression Screening: Denies depressed m ood or anxiety. Describes emotional health as: Bladder Control Screening: Denies proble ms Examination Category Sub-Category Detail Notes Category Not es General Examination HEENT: unremarkable Heart: RSR Lungs: clear to auscultatio n Extremities: no leg edema. There is bony prominence over the MCP joints of both thumbs, R>L, with tenderness at the right MCP joint. General Appearance: NAD Neck: supple, no lymphaden opathy Oral cavity: no lesions, mucosa m oist and WNL, no erythema
--- OUTSIDE RECORDS SUMMARY | 2025-04-06 07:39 | XMS_ITS | Patient Health Record ---
Author Organization [facility] Address [address] [facility] [address] [place] [phone] Care Team Providers Care Population Geneticist Name Role Phone Quentin Zhang Primary Care Provider Davina Chasidy Unavailable [phone] Allergies Allergen (clinical drug ingredient) Drug/Non Drug Allergy documented on EMR Reaction Allergy Type Onset Date Status Penicillin Unknown Drug Allergy Active Results Component Value Reference Range Notes Influenza Screen (in house) Reviewed date:07/21/2024 10:13:31 AM Interpretation: Performing Lab: Notes/Report: results Pos A Covid test (in house) Reviewed date:07/21/2024 10:13:24 AM Interpretation: Performing Lab: Notes/Report: Result: Neg P-Comprehensive Metabolic Pa esthela (CMP) Reviewed date:12/05/2024 09:26:48 PM Interpretation:ast 43 Performing Lab: Notes/Report: Test performed by [facility] [address] [place] [address] , [address], [place] [address] Kip Rahman MD, Piercing Artist CLIA: [id number] Sodium 138 135-145 mmol/L Potassium 4.2 3.5-5.3 [...] 145 Performing Lab: Notes/Report: Test performed by [facility] [address] [place] [address] , [address] , [place] [address] Kip Rahman MD, Piercing Artist CLIA: [id number] Cholesterol 267 <200 mg/dL Triglycerides 154 <150 [...] bilateral hips Bone density osteopenia bilateral hips Medications Medication SIG (Take, Route, Frequency, Duration) Notes Start Date End Date Status Benzonatate 200 MG 1 capsule as needed Orally Three times a day, prn 07/28/2024 Not-Taking Fjziozbwm-Mgakbnes-IZ 30-2-10 MG/5ML 5-10 ml Orally 4 times [...] Vaccine Route Administration Date Status Comme nts xFluzone Intradermal (18-64yrs)-trivalent ID Intradermal 06/03/2012 Administered xFluzone High Dose-private (65yr&older) Unknown 04/08/2024 Administered xFluzone (6mos and older)-trivalent IM Intramuscular 04/21/2013 Administered xFluzone (6mos and older)-trivalent IM Intramuscular 03/29/2014 Administered xFlu shot-36 months and older IM Intramuscular 04/14/2011 Administered Tetanus Tdap-Adacel (over 7yrs) Unknown 07/27/2008 Administered Fluzone Quad (6months&older) IM Intramuscular 06/03/2016 Administered Fluzone Quad (6months&older) IM Intramuscular 04/22/2017 Administered Fluzone Quad (6months&older) IM Intramuscular 04/07/2018 Administered Fluzone Quad (6months&older) IM Intramuscular 03/25/2019 Administered Fluzone Quad (6months&older) IM Intramuscular 03/09/2020 Administered Fluzone Quad (6months&older) IM Intramuscular 06/13/2021 Administered Fluzone High Dose (65yr and older) IM Intramuscular 03/06/2022 Administered Fluzone High Dose (65yr and older) Unknown 04/17/2023 Administered COVID 19 Pfizer Unknown 08/23/2020 Administered COVID 19 Pfizer Unknown 09/20/2020 Administered COVID 19 Pfizer Unknown 04/17/2021 Administered Problems Problem Type SNOMED Code ICD Code Onset Dates Problem Status W/U Status Risk Notes Problem Gout (53153825) Gout (M10.9) Active confirmed Problem Essential hypertension (01711852) Essential hypertension (I10) Active confirmed Problem Osteopenia (474986475) Osteopenia (M85.80) Active confirmed Problem Osteoarthritis (912251192) Osteoarthritis (M19.90) Active confirmed Problem Alcohol abuse (24876107) Alcohol abuse (F10.10) Active confirmed Problem Primary generalised osteoarthritis (908327453) Primary generalized (osteo)arthritis (M15.0) Active confirmed Problem Generalized anxiety disorder (96357596) Generalized anxiety disorder (F41.1) Active confirmed Problem Obstructive sleep apnea syndrome (disorder) (89661018) Obstructive sleep apnea (adult) (pediatric) (G47.33) Active confirmed Problem Anxiety disorder (768971006) Other mixed anxiety disorders (F41.3) Active confirmed Problem Localized, primary osteoarthritis of the hand (612415745) Primary osteoarthritis, right hand (M19.041) Active confirmed Problem Localized, primary osteoarthritis of the hand (220145516) Primary osteoarthritis, left hand (M19.042) Active confirmed Problem Gastroesophageal reflux disease (disorder) (952411383) Chronic GERD (K21.9) Active confirmed Problem Atrophy of vagina (065826386) Vaginal atrophy (N95.2) Active confirmed Problem Dyslipidemia (965616066) Dyslipidemia (E78.5) Active confirmed Problem Squamous cell carcinoma (371971783) Squamous cell carcinoma (C44.92) Active confirmed Problem Osteopenia following menopause (disorder) (051256073) Osteopenia after menopause (M81.0) Active confirmed Problem Gastroesophageal reflux disease (221628486) Gastroesophageal reflux disease, unspecified whether esophagitis present (K21.9) Active confirmed Vital Signs Heart Rate 78 /min 11/29/2024 Blood pressure diastolic 80 mm Hg 11/29/2024 Height 65 in 11/29/2024 Blood pressure systolic 140 mm Hg 11/29/2024 Weight 135.2 lbs 11/29/2024 BMI 22.5 kg/m2 11/29/2024 Encounters Encounter Location Date Provider Diagnosis [facility] [facility] [address] [id number] 07/21/2024 Chasidy Davina Influenza A J10.1 [facility] [address] [place] [id number] 11/29/2024 R Ian Zhang Adult general medica l examination Z00.00 ; Generalized anxiety disorder F41.1 ; Dyslipidemia E78.5 ; Osteopenia after menopause M81.0 ; Colon cancer screening Z12.11 ; Snoring R06.83 ; Osteoarthritis M19.90 ; Lumbar back pain M54.50 and BMI 22.0-22.9, adult Z68.22 [facility] [address] [facility] [address] [place], [place] [id number] 07/28/2024 Chasidy Davina Influenza A J10.1 [facility] [address] [facility] [address] [place], [place] [id number] 12/05/2024 R Ian Zhang [facility] [address] [facility] [address] [place], [place] [phone] 12/27/2024 R Ian Zhang [facility] [address] [place] [id number] 03/20/2025 Quentin Zhang Assessments Encounter Date Diagnosis (ICD [...] Treatment Pending Test Test Name Order Date sleep study 11/30/2024 Mammogram 03/20/2025 Cologuard 03/06/2022 Cologuard 11/29/2024 Insurance Providers Payer Name Payer Address Payer Phone Subscriber Number Group Number Insured Name Patient Relationship to Insured Coverage Start Date Coverage End Date MEDICARE PART B [address] [address] [place] [id number] Alma Amato Self - patient is the insured [employer] [address] [address] [place] [id number] Alma Amato Self - patient is the insured Medications Administered Medication Instructions Date of Administration Dosage Notes Dexamethasone 02/23/2018 1 mL Dexamethasone 03/04/2018 1 mL Medical (General) History Medical History History ICD Code Generalized anxiety disorder Osteopenia Dyslipidemia 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 Surgery Date(Month/Year) Appendectomy Hospitalization History Reason Date(Month/Year) [facility] ER - laceration to head 02/09/2017 [facility] and ER visit for fall 11/20/2011
--- NOTE | 2025-04-06 08:13 | MM_ITS ---
PROCEDURE INFORMATION: Exam: MG Bilateral Screening 3D Mammography Exam date and time: 04/06/2025 8:12 AM Age: 69 years old Clinical indication: Screening examination TECHNIQUE: Imaging protocol: Bilateral Screening tomosynthesis and 2D mammography including computer-aided detection (CAD) when performed. COMPARISON: 1. MG MM DIG SCREENING MAMM BI W/CAD 03/31/2024 7:48 AM 2. MG MM DIG SCREENING MAMM BI W/CAD 03/20/2023 7:49 AM FINDINGS: MAMMOGRAPHY: Breast composition: The breasts are heterogeneously dense, which may obscure small masses. Mass: None. Architectural distortion: None. Calcifications: No suspicious calcifications. Asymmetric density: None. Skin thickening: None. Axillary adenopathy: None. IMPRESSION: No mammographic evidence of malignancy. Annual screening is recommended unless otherwise clinically indicated. ASSESSMENT: BI-RADS Category 1: Negative.
== END 2025-04-06 23:59 | disposition home or self-care (01) ==
LOC: RAD 07:37
PROVIDERS: PCP Family Medicine; Visit Provider Family Medicine
DX: Z12.31 Encounter for screening mammogram for malignant neoplasm of breast (principal); R92.333 Mammographic heterogeneous density, bilateral breasts
CPT/HCPCS: 77063; 77067